=== PATIENT | female | born 1935 | race Caucasian/White ===

== ENCOUNTER 2016-08-27 11:20 | Emergency (ER) | payer MEDICARE ==
[~2016-08-27] VITALS: Ht 157.5 cm; Wt 63.0 kg
[2016-08-27 11:51] VITALS: BP 172/71; PULSE 66; RESP 18; O2SAT 97; O2SAT 98
--- NOTE | 2016-08-27 12:34 | PD ---
HPI Chief Complaint: Medical Clearance Time Seen by Provider: 12:28 Travel History International Travel<30 days: No Contact w/Intl Traveler<30days: No Traveled to known affect area: No History of Present Illness HPI 80-year-old female that presents to the ED for evaluation of failure to thrive. Patient apparently lives out of state. Per son were most of the history is obtained patient has been neglecting it pain her bills and she has no running water or electricity. She apparently is not taking care of herself on her arms or legs signs of neglect with poor bleeding. Patient lives by herself. Son lives here in [place]. No medical history as she has not seen a doctor since it and 10. Son just find out that patient has also noted. Apartment that she has on [place] which is unusual for her. She has no known history of dementia but son himself is noted that she is mentally declining. She came here to visit and this is one everything got noted. No recent falls. Patient apparently was seen at urgent care for evaluation of this as she will not go anywhere else. She has no primary care doctor in the area. Urgent care doctor saw her and she saw that her O2 sats were low and per ambulance reportedly coming here. Breath sounds are one of her lungs so sent her here for evaluation which she agreed to. Per ambulance her O2 with them and their lung exam was normal. She again denies any symptoms. She does per family appear to be very short of breath with ambulating and she does have a strong history of smoking. She denies again any symptoms. PFSH Past Medical History ?: Not Social History Alcohol Use: Yes (on occasion) Tobacco Use: Yes (0.5 ppd) Substance Use: No Allergies-Medications (Allergen,Severity, Reaction): Coded Allergies: No Known Allergies (Unverified , 08/27/16) Reported Meds & Prescriptions Reported Meds & Active Scripts Active Proair Hfa 8.5 GM Inh (Albuterol Sulfate) 90 Mcg/Act Aer 2 Puff INH Q4-6H PRN 108 mcg/actuation Review of Systems Except as stated in HPI: all other systems reviewed are Neg Physical Exam Narrative GENERAL: SKIN: Warm and dry. HEAD: Atraumatic. Normocephalic. EYES: Pupils equal and round 4 mm reactive to light and accommodation. No scleral icterus. No injection or drainage. ENT: No nasal bleeding or discharge. Mucous membranes pink and moist. Tongue is midline. No uvula deviation. NECK: Trachea midline. No JVD. CARDIOVASCULAR: Regular rate and rhythm. No murmurs, S3, S4. RESPIRATORY: No accessory muscle use. Clear to auscultation. Breath sounds equal bilaterally. GASTROINTESTINAL: Abdomen soft, non-tender, nondistended. Hepatic and splenic margins not palpable. MUSCULOSKELETAL: Extremities without clubbing, cyanosis, or edema. No obvious deformities. Full range of motion of the upper and lower extremities bilaterally. 2+ pulses bilaterally. Patient does have unkempt nails well as feet. No lumbar, thoracic, cervical spine tenderness to palpation. NEUROLOGICAL: Awake and alert. No obvious cranial nerve deficits. Motor grossly within normal limits. Five out of 5 muscle strength in the arms and legs. Normal speech. PSYCHIATRIC: Appropriate mood and affect; insight and judgment normal. Data Data Last Documented VS Vital Signs Date Time Temp Pulse Resp B/P Pulse Ox O2 Delivery O2 Flow Rate FiO2 08/27/16 11:51 83 18 08/27/16 11:51 172/71 97 Nasal Cannula 2 Orders Electrocardiogram (08/27/16 11:40) Complete Blood Count With Diff (08/27/16 11:40) Comprehensive Metabolic Panel (08/27/16 11:40) Creatine Kinase (Cpk) (08/27/16 11:40) Ckmb (Isoenzyme) Profile (08/27/16 11:40) Troponin I (08/27/16 11:40) Urinalysis - C+S If Indicated (08/27/16 11:40) Magnesium (Mg) (08/27/16 11:40) Thyroid Stimulating Hormone (08/27/16 11:40) Chest, Single Ap (08/27/16 11:40) Ct Brain W/O Iv Contrast(Rout) (08/27/16 11:40) Iv Access Insert/Monitor (08/27/16 11:40) Ecg Monitoring (08/27/16 11:40) Oximetry (08/27/16 11:40) Urine Culture (08/27/16 12:18) Labs Laboratory Tests Test 08/27/16 08/27/16 12:00 12:18 White Blood Count 8.0 TH/MM3 Red Blood Count 5.45 MIL/MM3 Hemoglobin 16.2 GM/DL Hematocrit 49.0 % Mean Corpuscular Volume 89.9 FL Mean Corpuscular Hemoglobin 29.7 PG Mean Corpuscular Hemoglobin 33.0 % Concent Red Cell Distribution Width 13.7 % Platelet Count 211 TH/MM3 Mean Platelet Volume 8.2 FL Neutrophils (%) (Auto) 73.5 % Lymphocytes (%) (Auto) 18.9 % Monocytes (%) (Auto) 6.1 % Eosinophils (%) (Auto) 0.7 % Basophils (%) (Auto) 0.8 % Neutrophils # (Auto) 5.9 TH/MM3 Lymphocytes # (Auto) 1.5 TH/MM3 Monocytes # (Auto) 0.5 TH/MM3 Eosinophils # (Auto) 0.1 TH/MM3 Basophils # (Auto) 0.1 TH/MM3 CBC Comment DIFF FINAL Differential Comment Sodium Level 141 MEQ/L Potassium Level 3.8 MEQ/L Chloride Level 104 MEQ/L Carbon Dioxide Level 31.3 MEQ/L Anion Gap 6 MEQ/L Blood Urea Nitrogen 11 MG/DL Creatinine 0.65 MG/DL Estimat Glomerular Filtration 87 ML/MIN Rate Random Glucose 89 MG/DL Calcium Level 9.3 MG/DL Magnesium Level 1.9 MG/DL Total Bilirubin 0.5 MG/DL Aspartate Amino Transf 22 U/L (AST/SGOT) Alanine Aminotransferase 19 U/L (ALT/SGPT) Alkaline Phosphatase 87 U/L Total Creatine Kinase 66 U/L Troponin I LESS THAN 0.02 NG/ML Total Protein 7.6 GM/DL Albumin 3.6 GM/DL Thyroid Stimulating Hormone 1.170 uIU/ML 3rd Gen Urine Color YELLOW Urine Turbidity CLEAR Urine pH 6.0 Urine Specific [place] 1.007 Urine Protein NEG mg/dL Urine Glucose (UA) NEG mg/dL Urine Ketones NEG mg/dL Urine Occult Blood NEG Urine Nitrite NEG Urine Bilirubin NEG Urine Urobilinogen LESS THAN 2.0 MG/DL Urine Leukocyte Esterase LARGE Urine RBC LESS THAN 1 /hpf Urine WBC 23 /hpf Urine Squamous Epithelial 1 /hpf Cells Urine Bacteria OCC /hpf Microscopic Urinalysis Comment CULTURE INDICATED MDM Medical Decision Making Medical Screen Exam Complete: Yes Emergency Medical Condition: Yes Medical Record Reviewed: Yes Interpretation(s) CBC & BMP Diagram 08/27/16 12:00 LFTs WNL UA shows possible UTI Last Impressions Head CT 08/27/16 1140 Signed Impressions: Service Date/Time: Saturday, August 27, 2016 12:49 - CONCLUSION: Unremarkable noncontrast CT. Leroy Marino MD Chest X-Ray 08/27/16 1140 Signed Impressions: Service Date/Time: Saturday, August 27, 2016 11:38 - CONCLUSION: No acute cardiopulmonary abnormality is identified. Elliot Rader MD troponin and CKMB negative Differential Diagnosis Failure to thrive versus dementia versus COPD versus CHF versus stroke versus electrolyte abnormality versus hypertension Narrative Course 80-year-old female that presents to the ED for evaluation of what appears to be dementia. Patient was properly examined and was found to have signs and symptoms which appear to be consistent with worsening dementia. Patient is not able to take care of herself. She has classic signs of dementia including her getting to pay bills. Not able to remember things. She has no medical history she does not see doctors per son. Son brought her here for evaluation for possible medical clearance to evaluate for possible home health as well as to evaluate for any other medical issues. Labs and imaging ordered. Labs and imaging showed possible UTI although was unremarkable. This was discussed with the family who agrees with plan. Case mentioned was contacted and they gave her information about what they could do. She is in agreement with taking her home as he does not want her to be placed. He feels comfortable taking her home with her. He feels reassured. At this time I believe the patient likely has COPD and will be given a prescription for albuterol. Her vitals and physical exam are reassuring here. Patient also was given a prescription for Bactrim to cover for possible UTI. From history and physical this again appears to be dementia and I spoke with the son in length that she needs to have a primary care doctor in the area. Patient is agrees with this plan. Patient was given information for her PCP is in the area. See ED worsening symptoms. Diagnosis Primary Impression: Dementia Qualified Code: G30.9 - Alzheimer's dementia without behavioral disturbance, unspecified timing of dementia onset Additional Impression: UTI (urinary tract infection) Qualified Code: N30.00 - Acute cystitis without hematuria Patient Instructions: General Instructions Additional Instructions: Take medications as prescribed. Follow-up with PCP. See ED worsening symptoms. Med/Other Pt SpecificInfo: Prescription(s) given Scripts Albuterol 8.5 GM Inh (Proair Hfa 8.5 GM Inh)90 Mcg/Act Aer2 Puff INH Q4-6H PRN ( SHORTNESS OF BREATH) #1 INHALER 108 mcg/actuation Prov:Frank Fernandez MD 08/27/16 Disposition: 01 DISCHARGE HOME Condition: Stable John Germain August 27, 2016 12:34
[2016-08-27 12:39] LABS: AUTOMATED NEUTROPHIL # 5.9 TH/MM3 (1.8-7.7); BASOPHIL # 0.1 TH/MM3 (0-0.2); BASOPHIL % 0.8 % (0.0-2.0); EOSINOPHIL # 0.1 TH/MM3 (0-0.4); EOSINOPHIL % 0.7 % (0.0-4.0); HEMO FLAGS DIFF FINAL; LYMPH % 18.9 % (9.0-44.0); LYMPHOCYTE # 1.5 TH/MM3 (1.0-4.8); MEAN CELL VOLUME 89.9 FL (80.0-100.0); MEAN CORPUSCULAR HEMOGLOBIN 29.7 PG (27.0-34.0); MONO % 6.1 % (0.0-8.0); NEUT % 73.5 % (16.0-70.0); PLATELET COUNT 211 TH/MM3 (150-450); RED BLOOD COUNT 5.45 MIL/MM3 (4.00-5.30); RED CELL DISTRIBUTION WIDTH 13.7 % (11.6-17.2)
[2016-08-27 12:43] LABS: BACTERIA, URINE OCC /hpf; BLOOD, URINE NEG (NEG); COMMENT (UR) CULTURE INDICATED; CULTURE IF INDICATED CULTURE INDICATED; GLUCOSE,URINE NEG (NEG); KETONE, URINE NEG (NEG); NITRITE,URINE NEG (NEG); SQUAMOUS EPITHELIAL CELL URINE 1 /hpf (0-5); URINE COLOR YELLOW (YELLW/STRAW)
[2016-08-27 12:46] LABS: ALT (GPT) 19 U/L (10-53); ANION GAP 6 MEQ/L (5-15); AST (GOT) 22 U/L (15-37); BICARBONATE 31.3 MEQ/L (21.0-32.0); BLOOD UREA NITROGEN 11 MG/DL (7-18); CHLORIDE 104 MEQ/L (98-107); GLOMERULAR FILTRATION RATE 87 ML/MIN (>89); MAGNESIUM 1.9 MG/DL (1.5-2.5); POTASSIUM 3.8 MEQ/L (3.5-5.1); SODIUM (NA) 141 MEQ/L (136-145)
[2016-08-27 12:56] LABS: ALKALINE PHOSPHATASE 87 U/L (45-117); TOTAL BILIRUBIN ADULT 0.5 MG/DL (0.2-1.0)
[2016-08-27 12:57] LABS: CREATINE KINASE 66 U/L (26-192)
--- NOTE | 2016-08-27 13:07 | RADRPT ---
EXAM DATE/TIME: 08/27/2016 12:49 [facility] COMPARISON: No previous studies available for comparison. INDICATIONS : Altered mental status/ trauma. RADIATION DOSE: 38.63 CTDIvol (mGy) MEDICAL HISTORY : None SURGICAL HISTORY : None. ENCOUNTER: Initial ACUITY: 1 day PAIN SCALE: 0/10 LOCATION: TECHNIQUE: Multiple contiguous axial images were obtained of the head. Using automated exposure control and adj ustment of the mA and/or kV according to patient size, radiation dose was kept as low as reasonably a chievable to obtain optimal diagnostic quality images. FINDINGS: CEREBRUM: The ventricles are normal for age. No evidence of midline shift, mass lesion, hemorrhage or acute in farction. No extra-axial fluid collections are seen. POSTERIOR FOSSA: The cerebellum and brainstem are intact. The 4th ventricle is midline. The cerebellopontine angle i s unremarkable. EXTRACRANIAL: The visualized portion of the orbits is intact. SKULL: The calvaria is intact. No evidence of skull fracture. CONCLUSION: Unremarkable noncontrast CT. Leroy Marino MD on August 27, 2016 at 13:04 Board Certified Radiologist. This report was verified electronically.
--- NOTE | 2016-08-27 13:19 | RADRPT ---
EXAM DATE/TIME: 08/27/2016 11:38 [facility] COMPARISON: No previous studies available for comparison. INDICATIONS : Short of breath. MEDICAL HISTORY : None. SURGICAL HISTORY : None. ENCOUNTER: Initial ACUITY: 1 day PAIN SCORE: 0/10 LOCATION: Bilateral chest FINDINGS: Portable AP views of the chest demonstrate a normal-sized cardiac silhouette. Lungs are hyperinflated but no effusion, consolidation, or pneumothorax is identified. The bones and soft tissues demonstrat e no acute finding. CONCLUSION: No acute cardiopulmonary abnormality is identified. Elliot Rader MD on August 27, 2016 at 13:09 Board Certified Radiologist. This report was verified electronically.
[2016-08-27] MEDS ORDERED: ALBUAER3 INH (13:35)
[2016-08-27] MEDS ORDERED: BACT800T5 PO (13:44)
--- NOTE | 2016-08-28 14:50 | EKG ---
Date Performed: 08/27/2016 Time Performed: 13:05:40 PTAGE: 80 years EKG: Sinus rhythm NORMAL ECG NO PREVIOUS TRACING DOCTOR: Franck Cook Interpretating Date/Time 08/28/2016 14:48:37
== END 2016-08-27 14:15 | disposition home or self-care (01) ==
LOC: NEPE 11:20
DX: G30.9 Alzheimer's disease, unspecified (principal); F02.80 Dementia in other diseases classified elsewhere, unspecified severity, without behavioral disturbance, psychotic disturbance, mood disturbance, and anxiety; N30.00 Acute cystitis without hematuria; R06.02 Shortness of breath; F17.200 Nicotine dependence, unspecified, uncomplicated; Z79.899 Other long term (current) drug therapy
CPT/HCPCS: 70450; 71010; 80053; 81001; 82550; 83735; 84443; 84484; 85025; 87086; 93005; 99285

== ENCOUNTER 2016-09-05 15:50 | Inpatient (IN) | payer MEDICARE, OTHER ==
[~2016-09-05] VITALS: Ht 154.9 cm; Wt 88.6 kg
[~2016-09-05 15:50] MED LIST: ALBUAER3 INH; BACT800T5 PO
[2016-09-05 16:45] VITALS: BP 142/79; PULSE 90; RESP 16; TEMP 99; O2SAT 94
[2016-09-05 18:03] LABS: AUTOMATED NEUTROPHIL # 8.2 TH/MM3 (1.8-7.7); BASOPHIL % 0.5 % (0.0-2.0); EOSINOPHIL % 0.3 % (0.0-4.0); HEMATOCRIT 52.4 % (35.0-46.0); HEMO FLAGS DIFF FINAL; LYMPH % 14.9 % (9.0-44.0); LYMPHOCYTE # 1.6 TH/MM3 (1.0-4.8); MEAN CELL VOLUME 90.2 FL (80.0-100.0); MEAN CORPUSCULAR HEMOGLOBIN 29.5 PG (27.0-34.0); MEAN CORPUSCULAR HGB CONC 32.8 % (32.0-36.0); MONO % 6.5 % (0.0-8.0); NEUT % 77.8 % (16.0-70.0); PLATELET COUNT 264 TH/MM3 (150-450); RED BLOOD COUNT 5.82 MIL/MM3 (4.00-5.30); RED CELL DISTRIBUTION WIDTH 13.5 % (11.6-17.2); WHITE BLOOD COUNT 10.5 TH/MM3 (4.0-11.0)
[2016-09-05 18:17] LABS: ALT (GPT) 26 U/L (10-53)
[2016-09-05 18:19] LABS: ALKALINE PHOSPHATASE 105 U/L (45-117); TOTAL BILIRUBIN ADULT 0.4 MG/DL (0.2-1.0)
[2016-09-05 18:32] LABS: ANION GAP 7 MEQ/L (5-15); AST (GOT) 28 U/L (15-37); BICARBONATE 26.9 MEQ/L (21.0-32.0); BLOOD UREA NITROGEN 29 MG/DL (7-18); CHLORIDE 101 MEQ/L (98-107); GLOMERULAR FILTRATION RATE 47 ML/MIN (>89); POTASSIUM 4.5 MEQ/L (3.5-5.1); SODIUM (NA) 135 MEQ/L (136-145)
--- NOTE | 2016-09-05 20:46 | PD ---
HPI Chief Complaint: Psychiatric Symptoms Time Seen by Provider: 20:39 Travel History International Travel<30 days: No Contact w/Intl Traveler<30days: No Traveled to known affect area: No History of Present Illness HPI 80yo F with no PMH brought in as [email or web address] because she cannot care for herself. As per [email or web address] form, she attempt to fly to [place] and had no ID or money on her. Pt may have dementia/alzhiemer per son per paper work. Pt denies any complaints. Denies any fever, chest pain, sob, n/v, abdominal pain, focal weakness or numbness. Denies any drug or alcohol use. PFSH Past Medical History ?: Not Social History Alcohol Use: No Tobacco Use: Yes Substance Use: No Allergies-Medications (Allergen,Severity, Reaction): Coded Allergies: No Known Allergies (Unverified , 08/27/16) Reported Meds & Prescriptions Reported Meds & Active Scripts Active Bactrim DS (Sulfamethoxazole-Trimethoprim) 800-160 Mg Tab 1 Tab PO BID 7 Days Proair Hfa 8.5 GM Inh (Albuterol Sulfate) 90 Mcg/Act Aer 2 Puff INH Q4-6H PRN 108 mcg/actuation Review of Systems Except as stated in HPI: all other systems reviewed are Neg Physical Exam Narrative GENERAL: 80yo F not in distress. SKIN: Focused skin assessment warm/dry. HEAD: Atraumatic. Normocephalic. EYES: Pupils equal and round. EOMI. No scleral icterus. No injection or drainage. ENT: No nasal bleeding or discharge. Mucous membranes pink and moist. NECK: Trachea midline. No JVD. CARDIOVASCULAR: Regular rate and rhythm. No murmur appreciated. RESPIRATORY: No accessory muscle use. Clear to auscultation. Breath sounds equal bilaterally. GASTROINTESTINAL: Abdomen soft, non-tender, nondistended. MUSCULOSKELETAL: No obvious deformities. No clubbing. No cyanosis. No edema. NEUROLOGICAL: Awake and alert. AAO2x. No obvious cranial nerve deficits. Motor grossly within normal limits. Normal speech. Data Data Last Documented VS Vital Signs Date Time Temp Pulse Resp B/P Pulse Ox O2 Delivery O2 Flow Rate FiO2 09/05/16 21:52 80 16 146/78 96 Room Air 09/05/16 16:45 99.0 Orders Complete Blood Count With Diff (09/05/16 17:45) Comprehensive Metabolic Panel (09/05/16 17:45) Urinalysis - C+S If Indicated (09/05/16 17:45) Psych Screen (09/05/16 17:45) Drug Screen, Random Urine (09/05/16 17:45) Alcohol (Ethanol) (09/05/16 17:45) Cath For Specimen (09/05/16 17:45) Diet Heart Healthy (09/06/16 Breakfast) Labs Laboratory Tests Test 09/05/16 09/05/16 17:40 22:10 White Blood Count 10.5 TH/MM3 Red Blood Count 5.82 MIL/MM3 Hemoglobin 17.2 GM/DL Hematocrit 52.4 % Mean Corpuscular Volume 90.2 FL Mean Corpuscular Hemoglobin 29.5 PG Mean Corpuscular Hemoglobin 32.8 % Concent Red Cell Distribution Width 13.5 % Platelet Count 264 TH/MM3 Mean Platelet Volume 8.3 FL Neutrophils (%) (Auto) 77.8 % Lymphocytes (%) (Auto) 14.9 % Monocytes (%) (Auto) 6.5 % Eosinophils (%) (Auto) 0.3 % Basophils (%) (Auto) 0.5 % Neutrophils # (Auto) 8.2 TH/MM3 Lymphocytes # (Auto) 1.6 TH/MM3 Monocytes # (Auto) 0.7 TH/MM3 Eosinophils # (Auto) 0.0 TH/MM3 Basophils # (Auto) 0.0 TH/MM3 CBC Comment DIFF FINAL Differential Comment Sodium Level 135 MEQ/L Potassium Level 4.5 MEQ/L Chloride Level 101 MEQ/L Carbon Dioxide Level 26.9 MEQ/L Anion Gap 7 MEQ/L Blood Urea Nitrogen 29 MG/DL Creatinine 1.12 MG/DL Estimat Glomerular Filtration 47 ML/MIN Rate Random Glucose 106 MG/DL Calcium Level 9.5 MG/DL Total Bilirubin 0.4 MG/DL Aspartate Amino Transf 28 U/L (AST/SGOT) Alanine Aminotransferase 26 U/L (ALT/SGPT) Alkaline Phosphatase 105 U/L Total Protein 8.0 GM/DL Albumin 3.8 GM/DL Ethyl Alcohol Level LESS THAN 3 MG/DL Urine Color YELLOW Urine Turbidity HAZY Urine pH 5.5 Urine Specific [place] 1.028 Urine Protein 30 mg/dL Urine Glucose (UA) NEG mg/dL Urine Ketones TRACE mg/dL Urine Occult Blood NEG Urine Nitrite NEG Urine Bilirubin NEG Urine Urobilinogen 2.0 MG/DL Urine Leukocyte Esterase SMALL Urine RBC LESS THAN 1 /hpf Urine WBC 4 /hpf Urine Hyaline Casts 1 /lpf Urine Mucus FEW /lpf Microscopic Urinalysis Comment CULT NOT INDICATED MDM Medical Decision Making Medical Screen Exam Complete: Yes Emergency Medical Condition: Yes Differential Diagnosis Dementia vs. delirium Narrative Course 80yo F brought in here under [place] Act because son states she cant take care of herself. She is no complaints. VS stable. Labs reviewed, elevated H/H. No leukocytosis. BUN mildly elevated. Pt can hydrate orally. Pt is hungry and wants to eat. Will provide pt with food and drink. Alcohol negative. UA and urine drug screen pending. Pt is medically clear for psych evaluation. Diagnosis Primary Impression: Dementia Qualified Code: F03.90 - Dementia without behavioral disturbance, unspecified dementia type Melina Padilla DO September 05, 2016 20:46
[2016-09-05 21:52] VITALS: BP 146/78; PULSE 80; RESP 16; O2SAT 96
[2016-09-05 22:24] LABS: BLOOD, URINE NEG (NEG); GLUCOSE,URINE NEG (NEG); HYALINE CAST, URINE 1 /lpf (RARE); KETONE, URINE TRACE mg/dL (NEG); MUCUS URINE FEW /lpf (OCC); NITRITE,URINE NEG (NEG); PH, URINE 5.5 (5.0-8.5); URINE COLOR YELLOW (YELLW/STRAW)
[2016-09-05 22:25] LABS: COMMENT (UR) CULT NOT INDICATED; CULTURE IF INDICATED CULT NOT INDICATED
[2016-09-06 01:41] LABS: AMPHETAMINE, URINE NEG (NEG); BARBITURATES, URINE NEG (NEG); COCAINE, URINE NEG (NEG)
[2016-09-06 05:17] VITALS: BP 156/70; PULSE 69; RESP 14; O2SAT 69
[2016-09-06 07:36] VITALS: BP 145/65; PULSE 75; RESP 14; TEMP 98.7; O2SAT 98
[2016-09-06 15:15] VITALS: BP 141/75; PULSE 78; RESP 18; O2SAT 96
[2016-09-06 19:18] VITALS: BP 142/93; PULSE 86; RESP 15; O2SAT 94
[2016-09-06] MEDS ORDERED: hydrOXYzine HCL 50 MG TAB PO PRN (23:30)
[2016-09-06] MEDS ORDERED: BENZTROPINE MESYLATE 2 MG/2 ML VIAL IM PRN (23:30)
[2016-09-06] MEDS ORDERED: LORazepam 0.5 MG TAB age > 65 yrs PO PRN (23:30)
[2016-09-06] MEDS ORDERED: BENZTROPINE MESYLATE 1 MG TAB PO PRN (23:30)
[2016-09-06] MEDS ORDERED: diphenhydrAMINE HCL 50 MG/ML VIAL - HS PRN IM (23:30)
[2016-09-06] MEDS ORDERED: LORazepam 2 MG/ML VIAL - age > 65 yrs IM PRN (23:30)
[2016-09-06] MEDS ORDERED: ALUMINUM/MAGNESIUM/SIMETH 30 ML CUP PO PRN (23:30)
[2016-09-06] MEDS ORDERED: diphenhydrAMINE HCL 50 MG CAP - HS PRN PO (23:30)
[2016-09-06] MEDS ORDERED: diphenhydrAMINE HCL 50 MG/ML VIAL IM PRN (23:30)
[2016-09-06] MEDS ORDERED: traZODone HCL 50 MG TAB PO PRN (23:30)
[2016-09-06] MEDS ORDERED: MAGNESIUM HYDROXIDE SUSP 30 ML CUP PO PRN (23:30)
[2016-09-06] MEDS ORDERED: ACETAMINOPHEN 325 MG TAB PO PRN (23:30)
[2016-09-06] MEDS ORDERED: diphenhydrAMINE HCL 50 MG CAP PO PRN (23:30)
[2016-09-07 01:39] VITALS: BP 179/81; PULSE 81; RESP 16; TEMP 97.9; O2SAT 90
[2016-09-07 05:38] VITALS: BP 153/68; PULSE 74; RESP 16; TEMP 98.3; O2SAT 92
[2016-09-07 10:52] LABS: BICARBONATE 23.9 MEQ/L (21.0-32.0); HDL CHOLESTEROL 48.9 MG/DL (40.0-60.0)
[2016-09-07 10:53] LABS: POTASSIUM 6.3 MEQ/L (3.5-5.1)
[2016-09-07] MEDS ORDERED: ACETAMINOPHEN 325 MG TAB PO PRN (11:45)
[2016-09-07] MEDS ORDERED: MAGNESIUM HYDROXIDE SUSP 30 ML CUP PO PRN (11:45)
[2016-09-07] MEDS ORDERED: ALUMINUM/MAGNESIUM/SIMETH 30 ML CUP PO PRN (11:45)
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
[2016-09-07] MEDS ORDERED: BACT800T5 PO (12:04)
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
== END 2016-09-07 13:10 | disposition home or self-care (01) | DRG 57 ==
LOC: NEPD 15:50 → NEDA 09-06 23:12 → H260 09-07 01:04
PROVIDERS: ADMIT Psychiatry & Neurology Psychiatry; ATTEND Psychiatry & Neurology Psychiatry
DX: G30.9 Alzheimer's disease, unspecified (principal); F02.81 Dementia in other diseases classified elsewhere, unspecified severity, with behavioral disturbance; N39.0 Urinary tract infection, site not specified; F17.210 Nicotine dependence, cigarettes, uncomplicated
CPT/HCPCS: 80048; 80053; 80061; 80307; 81001; 85025; 99285

== ENCOUNTER 2017-10-23 13:40 | Inpatient (IN) ==
[2017-10-23] MEDS ORDERED: Amiodarone Inj 150 MG in Dextrose 5% in Water Inj 97 ML IV.SIG ONE ×2 (13:57)
--- NOTE | 2017-10-23 14:10 | ED ---
HPI General Chief Complaint: Respiratory Symptoms Stated Complaint: medical Time Seen by Provider: 10/23/17 13:57 Source: patient Mode of arrival: EMS Limitations: no limitations History of Present Illness MD complaint: rapid heart beat, "heart racing" and irregular heart beat Onset (ago): minute(s) (45) Duration: constant Severity: severe Context: occurred during rest Arrhythmia history: other (Per patient she has no history of atrial fibrillation or any other irregular or arrhythmias) Associated symptoms: shortness of breath Related Data Home Medications Medication Instructions Recorded Confirmed amoxicillin-pot clavulanate 1 tab PO BID 10/23/17 10/23/17 [Augmentin] cyanocobalamin (vitamin B-12) 2,000 mcg PO DAILY 10/23/17 10/23/17 [Vitamin B-12] prednisone 5 mg PO DAILY 10/23/17 10/23/17 tiotropium bromide [Spiriva with 1 cap INHALATION DAILY 10/23/17 10/23/17 HandiHaler] Allergies Allergy/AdvReac Type Severity Reaction Status Date / Time No Known Allergies Allergy Unverified 10/23/17 13:55 Review of Systems Except as stated in HPI: all other systems reviewed are negative PMFSH History History Provided By: Patient Medical History Medical History COPD (chronic obstructive pulmonary disease) (Acute) Dementia (Acute) History of hysterectomy (Acute) Social History Social History Substance History: No History of Abuse Second Hand Smoke Exposure: Yes Smoking Status: Current every day smoker Tobacco Type: Cigarettes How Often Do You Have a Drink Containing Alcohol: Never Recent Travel in [facility] within the Last 8 Weeks: No Recent Out of Country Travel within the Last 8 Weeks: No Exam Narrative Exam Narrative: GENERAL: Well-nourished, well-developed patient in no apparent distress. SKIN: Warm and dry. HEAD: Atraumatic. Normocephalic. EYES: Pupils equal and round. No scleral icterus. No injection or drainage. ENT: No nasal bleeding or discharge. Mucous membranes pink and moist. NECK: Trachea midline. No JVD. CARDIOVASCULAR: Tachycardic rate irregularly irregular rhythm. no rubs or gallops RESPIRATORY: No accessory muscle use. Clear to auscultation. Breath sounds equal bilaterally. GASTROINTESTINAL: Abdomen soft, non-tender, nondistended. No rebound or guarding MUSCULOSKELETAL: Extremities without clubbing, cyanosis, or edema. No obvious deformities. NEUROLOGICAL: Awake and alert. No obvious cranial nerve deficits. Motor grossly within normal limits. Five out of 5 muscle strength in the arms and legs. Normal speech. PSYCHIATRIC: Appropriate mood and affect; insight and judgment normal. Course Initial Documented Vital Signs Temperature 98.0 F 10/23/17 13:56 Pulse Rate 188 H 10/23/17 13:56 Respiratory Rate 28 H 10/23/17 13:56 Blood Pressure 88/63 L 10/23/17 13:56 Pulse Oximetry 92 L 10/23/17 13:56 Last Documented Vital Signs Temperature 97.8 F 10/23/17 15:10 Pulse Rate 89 10/23/17 15:10 Respiratory Rate 22 10/23/17 15:10 Blood Pressure 117/77 10/23/17 15:10 Pulse Oximetry 99 10/23/17 15:10 Critical Care Time Critical Care Time: Yes Total Critical Care Time: 60 Attestation: Aggregate critical care time was 60 minutes. Time to perform other separately billable procedures was not included in the critical care time. My time did not include minutes spent treating any other patients simultaneously or on activities that did not directly contribute to the patient's treatment. The services I provided to this patient were to treat and/or prevent clinically significant deterioration that could result in: [Hypoperfusion such as stroke [place], permanent disability, ] I provided critical care services requiring my management, as noted below: Chart data review, documentation time, medication orders and management, vital sign assessments/reviewing monitor data, ordering and reviewing lab tests, ordering and interpreting/reviewing x-rays and diagnostic studies, care of the patient and discussion of the patient with the admitting physicians. Medical Decision Making Medical Records Medical records reviewed: Yes I reviewed the patient's medical records. Attempted to review all records however the patient is from Lab Data Lab results reviewed: Yes I reviewed the patient's lab results. Result diagrams: 10/23/17 14:10 10/23/17 14:10 Lab Results 10/23/17 10/23/17 10/23/17 Range/Units 14:10 14:10 14:10 WBC 21.6 H (4.0-11.0) th/mm3 RBC 5.05 (4.00-5.30) mil/mm3 Hgb 14.9 (11.6-15.3) gm/dL Hct 45.2 (35.0-46.0) % MCV 89.6 (80.0-100.0) fL MCH 29.5 (27.0-34.0) pg MCHC 33.0 (32.0-36.0) % RDW 13.3 (11.6-17.2) % Plt Count 468 H (150-450) th/mm3 MPV 8.3 (7.0-11.0) fL Neut % (Auto) 90.3 H (16.0-70.0) % Lymph % (Auto) 4.8 L (9.0-44.0) % [place] % (Auto) 4.8 (0.0-8.0) % Eos % (Auto) 0.0 (0.0-4.0) % Baso % (Auto) 0.1 (0.0-2.0) % Neut # (Auto) 19.5 H (1.8-7.7) th/mm3 Lymph # (Auto) 1.0 (1.0-4.8) th/mm3 [place] # (Auto) 1.0 H (0.0-0.9) th/mm3 Eos # (Auto) 0.0 (0.0-0.4) th/mm3 Baso # (Auto) 0.0 (0.0-0.2) th/mm3 WBC Differential . Differential Comment Auto diff final PT 11.2 (9.8-11.6) sec INR 1.1 Ratio APTT 26.5 (24.3-30.1) sec Sodium 137 (136-145) meq/L Potassium 4.2 (3.5-5.1) meq/L Chloride 96 L (98-107) meq/L Carbon Dioxide 29.1 (21.0-32.0) meq/L Anion Gap 12 (5-15) meq/L BUN 13 (7-18) mg/dL Creatinine 0.82 (0.50-1.00) mg/dL Estimated GFR 67 L (>89) mL/min Random Glucose 101 (74-106) mg/dL Calcium 7.9 L (8.5-10.1) mg/dL Prot Corrected Calcium Total Bilirubin 1.0 (0.2-1.0) mg/dL AST 31 (15-37) U/L ALT 31 (10-53) U/L Alkaline Phosphatase 213 H (45-117) U/L Total Creatine Kinase 46 (26-192) U/L Troponin I Less than 0.02 L (0.02-0.05) ng/mL B-Natriuretic Peptide (0-100) pg/mL Total Protein 7.5 (6.4-8.2) g/dL Albumin 2.3 L (3.4-5.0) g/dL Lipase 98 (73-393) U/L Serum Alcohol Less than 3 (0-5) mg/dL 10/23/17 10/23/17 Range/Units 14:10 14:10 WBC (4.0-11.0) th/mm3 RBC (4.00-5.30) mil/mm3 Hgb (11.6-15.3) gm/dL Hct (35.0-46.0) % MCV (80.0-100.0) fL MCH (27.0-34.0) pg MCHC (32.0-36.0) % RDW (11.6-17.2) % Plt Count (150-450) th/mm3 MPV (7.0-11.0) fL Neut % (Auto) (16.0-70.0) % Lymph % (Auto) (9.0-44.0) % [place] % (Auto) (0.0-8.0) % Eos % (Auto) (0.0-4.0) % Baso % (Auto) (0.0-2.0) % Neut # (Auto) (1.8-7.7) th/mm3 Lymph # (Auto) (1.0-4.8) th/mm3 [place] # (Auto) (0.0-0.9) th/mm3 Eos # (Auto) (0.0-0.4) th/mm3 Baso # (Auto) (0.0-0.2) th/mm3 WBC Differential Differential Comment PT (9.8-11.6) sec INR Ratio APTT (24.3-30.1) sec Sodium Cancelled (136-145) meq/L Potassium Cancelled (3.5-5.1) meq/L Chloride Cancelled (98-107) meq/L Carbon Dioxide Cancelled (21.0-32.0) meq/L Anion Gap Cancelled (5-15) meq/L BUN Cancelled (7-18) mg/dL Creatinine Cancelled (0.50-1.00) mg/dL Estimated GFR Cancelled (>89) mL/min Random Glucose Cancelled (74-106) mg/dL Calcium Cancelled (8.5-10.1) mg/dL Prot Corrected Calcium Cancelled Total Bilirubin Cancelled (0.2-1.0) mg/dL AST Cancelled (15-37) U/L ALT Cancelled (10-53) U/L Alkaline Phosphatase Cancelled (45-117) U/L Total Creatine Kinase Cancelled (26-192) U/L Troponin I (0.02-0.05) ng/mL B-Natriuretic Peptide 214 H (0-100) pg/mL Total Protein Cancelled (6.4-8.2) g/dL Albumin Cancelled (3.4-5.0) g/dL Lipase (73-393) U/L Serum Alcohol (0-5) mg/dL Imaging Data Radiologist's impression: Chest X-Ray 10/23/17 13:57 CONCLUSION: New diffuse patchy infiltrate in the left lower lung with a small effusion suggestive of pneumonia. ECG Data EKG Prior to Arrival: No Attestation: I personally reviewed and interpreted this ECG as follows: Prior ECG tracings: not available for review Interpretation: A. fib with RVR nonspecific stt changes 180 bpm Discharge Plan Discharge Disposition Patient Disposition: 30 Still Patient Discharge Condition Condition: Stable Discharge Details Diagnosis: Pneumonia, Atrial fibrillation with rapid ventricular response Physicians Team ED Provider: Jemal Harris Primary Care Provider: UNKNOWN, Rxs /Orders / Referrals /Forms Prescriptions: No Action prednisone 5 mg Tablet 5 mg PO DAILY RF: 0 cyanocobalamin (vitamin B-12) [Vitamin B-12] 2,000 mcg Tablet Extended Release 2,000 mcg PO DAILY RF: 0 amoxicillin-pot clavulanate [Augmentin] 875-125 mg Tablet 1 tab PO BID RF: 0 tiotropium bromide [Spiriva with HandiHaler] 18 mcg Capsule, W/Inhalation Device 1 cap INHALATION DAILY RF: 0 Discharge Interventions Interventions: Vital Signs Last Done: 10/23/17 15:10 Status ED Status: With Doctor
[2017-10-23 14:46] LABS: Baso % (Auto) 0.1 % (0.0-2.0); Hematocrit 45.2 % (35.0-46.0); Hemoglobin 14.9 gm/dL (11.6-15.3); Lymph % (Auto) 4.8 % (9.0-44.0); Mean Corpuscular Hemoglobin 29.5 pg (27.0-34.0); Mean Corpuscular Volume 89.6 fL (80.0-100.0); Mean Platelet Volume 8.3 fL (7.0-11.0); Mono % (Auto) 4.8 % (0.0-8.0); Neut # (Auto) 19.5 th/mm3 (1.8-7.7); Neut % (Auto) 90.3 % (16.0-70.0); Platelet Count 468 th/mm3 (150-450); Red Blood Count 5.05 mil/mm3 (4.00-5.30); Red Cell Distribution Width 13.3 % (11.6-17.2); White Blood Count 21.6 th/mm3 (4.0-11.0)
--- NOTE | 2017-10-23 14:46 | XR ---
EXAM DATE: 10/23/2017 2:41 PM EDT AGE/SEX: 81 years / Female INDICATIONS: . Chest pain. CLINICAL DATA: This is the patient's initial encounter. Patient reports that signs and symptoms have been present for 1 day and indicates a pain score of 7/10. MEDICAL/SURGICAL HISTORY: Chronic obstructive pulmonary disease. None. COMPARISON: [facility] – [place], CHEST SINGLE AP, 08/27/2016. . FINDINGS: There is a new diffuse patchy infiltrate in the left lower lung with a small effusion suggestive of p neumonia. The right lung is grossly clear. There is stable chronic interstitial changes bilaterally. The heart size is stable. The bony structures are grossly intact. CONCLUSION: New diffuse patchy infiltrate in the left lower lung with a small effusion suggestive of pneumonia. Electronically signed by: Cecilio Alicia MD 10/23/2017 2:45 PM EDT
[2017-10-23 14:56] LABS: Activated Partial Thrombo Time 26.5 sec (24.3-30.1); INR 1.1 Ratio; Prothrombin Time 11.2 sec (9.8-11.6)
[2017-10-23 15:20] LABS: Alanine Aminotransferase 31 U/L (10-53); Albumin 2.3 g/dL (3.4-5.0); Anion Gap 12 meq/L (5-15); Aspartate Aminotransferase 31 U/L (15-37); Blood Urea Nitrogen 13 mg/dL (7-18); Calcium 7.9 mg/dL (8.5-10.1); Carbon Dioxide 29.1 meq/L (21.0-32.0); Chloride 96 meq/L (98-107); Glomerular Filtration Rate 67 mL/min (>89); Glucose,Random 101 mg/dL (74-106); Lipase 98 U/L (73-393); Potassium 4.2 meq/L (3.5-5.1); Sodium 137 meq/L (136-145)
[2017-10-23 15:25] LABS: Alkaline Phosphatase 213 U/L (45-117); Total Protein 7.5 g/dL (6.4-8.2)
[2017-10-23 15:35] LABS: Creatine Kinase 46 U/L (26-192)
[2017-10-23] MEDS ORDERED: Ketorolac Inj 30 MG/ML (IVP) Vial IV.PUSH ONE (16:05)
[2017-10-23] MEDS ORDERED: Acetaminophen 325 MG Tablet PO PRN (16:18)
--- NOTE | 2017-10-23 16:32 | P.HPIM ---
History of Present Illness Primary Care Physician: UNKNOWN Chief Complaint: shortness of breath History of Present Illness: patient is a 81 y/o female with history of dementia, COPD , [facility] resident, who was brought to ER today with worsening sob. 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 she says that she's had dry cough with no reported fever, chills, night sweats. she says that she had some pain to the left chest wall. on arrival to ER she was found to have a- fib with RVR for which she was placed on Amiodarone drip. there's no history of sick- contacts recently. Inpatient Certification: I certify that the inpatient services were ordered in accordance with Medicare regulations governing the order. This includes certification that hospital inpatient services are reasonable and necessary and in the case of services not specified as inpatient-only under 42 CFR 419.22(n), that they are appropriately provided as inpatient services in accordance to with the 2-midnight benchmark under 43 CFR 412.3(e) Estimated Total Length of Stay (Days): 2 Plans for Post Hospital Care: Other Review of Systems All other systems reviewed negative except as stated in HPI PMFSH - History History Provided By: Patient - Medical History Medical History: Medical History (Last Updated 10/23/17 @ 14:13 by Annabelle Hanson) COPD (chronic obstructive pulmonary disease) Dementia History of hysterectomy - Tobacco History Second Hand Smoke Exposure: Yes Tobacco Use In Past 30 Days: Yes Smoking Status: Current every day smoker Tobacco Type: Cigarettes - Alcohol History How Often Do You Have a Drink Containing Alcohol: Never - Substance Use History Substance History: No History of Abuse - Travel History Recent Travel in the [place] Within the Last 8 Weeks: No Recent Travel Out of the Country Within the Last 8 Weeks: No - Immunization History Tetanus Immunization: >5 Years Hx Influenza Vaccine This Season: Yes Medications and Allergies Active Medications: Active Medications Acetaminophen (Tylenol) 650 mg PO Q4H PRN PRN Reason: fever/pain Albuterol (Albuterol Neb (Prn)) 0.63 mg NEB Q6HR NEB PRN PRN Reason: SHORTNESS OF BREATH Amiodarone HCl 450 mg/ (Dextrose) 250 mls @ 33.33 mls/hr IV.CONT TITRATE PRN; Protocol PRN Reason: Per Protocol Last Admin: 10/23/17 14:19 Dose: 1 mg/min, 33.33 mls/hr Levofloxacin/Dextrose (Levaquin 750 Mg Premix Inj) 150 mls @ 100 mls/hr IV.SIG STAT STA Stop: 10/23/17 17:20 Last Admin: 10/23/17 16:10 Dose: 100 mls/hr Sodium Chloride (Ns Flush) 2 ml IV.FLUSH UNSCH PRN PRN Reason: FLUSH AFTER USING IV ACCESS Last Admin: 10/23/17 14:04 Dose: 2 ml Allergies Allergy/AdvReac Type Severity Reaction Status Date / Time No Known Allergies Allergy Unverified 10/23/17 13:55 Home Medications Medication Instructions Recorded Confirmed Type amoxicillin-pot clavulanate 1 tab PO BID 10/23/17 10/23/17 History [Augmentin] cyanocobalamin (vitamin B-12) 2,000 mcg PO DAILY 10/23/17 10/23/17 History [Vitamin B-12] prednisone 5 mg PO DAILY 10/23/17 10/23/17 History tiotropium bromide [Spiriva with 1 cap INHALATION DAILY 10/23/17 10/23/17 History HandiHaler] Exam Vital signs: Vital Signs 10/23/17 13:56 10/23/17 13:57 10/23/17 14:25 Temperature 98.0 F 97.9 F Pulse Rate 188 H 188 H 96 H Respiratory Rate 28 H 32 H Blood Pressure 88/63 L 125/59 L Pulse Oximetry 92 L 96 94 L 10/23/17 15:10 10/23/17 16:12 Temperature 97.8 F 98.0 F Pulse Rate 89 83 Respiratory Rate 22 24 Blood Pressure 117/77 120/61 Pulse Oximetry 99 98 Intake & Output 10/22/17 10/23/17 10/23/17 18:59 06:59 18:59 Intake Total 100 / 100 Balance 100 / 100 Weight 58.967 kg Intake: IV 100 / 100 Cordarone Inj 150 MG In D5W Inj 100 / 100 97 ML @ 600 mls/hr IV.SIG ONCE ONE Rx#:[id number] - Constitutional mild distress - Routine HEENT Exam Head: Present: normocephalic Eye: Present: PERRL - Routine Neck Exam Present: supple, full ROM - Routine Respiratory Exam Present: diminished air movement (in bases bilaterally.) - Routine Cardiovascular Exam Present: tachycardia, irregularly irregular - Routine Abdominal Exam Present: soft - Routine Extremities Exam Comments: no pedal edema. - Routine Neurological Exam Present: alert Results - Labs CBC & Chem 7: 10/23/17 14:10 10/23/17 14:10 Labs: Short CBC 10/23/17 Range/Units 14:10 WBC 21.6 H (4.0-11.0) th/mm3 Hgb 14.9 (11.6-15.3) gm/dL Hct 45.2 (35.0-46.0) % Plt Count 468 H (150-450) th/mm3 BMP 10/23/17 10/23/17 14:10 14:10 Sodium 137 Cancelled Potassium 4.2 Cancelled Chloride 96 L Cancelled Carbon Dioxide 29.1 Cancelled BUN 13 Cancelled Creatinine 0.82 Cancelled Calcium 7.9 L Cancelled Cardiac Enzymes 10/23/17 10/23/17 Range/Units 14:10 14:10 Total Creatine Kinase 46 Cancelled (26-192) U/L Troponin I Less than 0.02 L (0.02-0.05) ng/mL Liver Function 10/23/17 10/23/17 Range/Units 14:10 14:10 Total Bilirubin 1.0 Cancelled (0.2-1.0) mg/dL AST 31 Cancelled (15-37) U/L ALT 31 Cancelled (10-53) U/L Alkaline Phosphatase 213 H Cancelled (45-117) U/L Albumin 2.3 L Cancelled (3.4-5.0) g/dL - Imaging Impressions Chest X-Ray 10/23/17 13:57 CONCLUSION: New diffuse patchy infiltrate in the left lower lung with a small effusion suggestive of pneumonia. Caprini VTE Risk Assessment Caprini VTE Risk Assessment: Moderate/High Risk (score >= 2) Caprini Risk Assessment Model: Point Value = 1 Point Value = 2 Point Value = 3 Point Value = 5 Age 41-60 Minor surgery BMI > 25 kg/m2 Swollen legs Varicose veins or History of unexplained or recurrent spontaneous Oral contraceptives or hormone replacement Sepsis (< 1 month) Serious lung disease, including pneumonia (< 1 month) Abnormal pulmonary function Acute myocardial infarction Congestive heart failure (< 1 month) History of inflammatory bowel disease Medical patient at bed rest Age 61-74 Arthroscopic surgery Major open surgery (> 45 min) Laparoscopic surgery (> 45 min) Malignancy Confined to bed (> 72 hours) Immobilizing plaster cast Central venous access Age >= 75 History of VTE Family history of VTE Factor V Leiden Prothrombin [id number] Lupus anticoagulant Anticardiolipin antibodies Elevated serum homocysteine Heparin-induced thrombocytopenia Other congenital or acquired thrombophilia Stroke (< 1 month) Elective arthroplasty Hip, pelvis, or leg fracture Acute spinal cord injury (< 1 month) Prophylaxis Regimen: Total Risk Factor Score Risk Level Prophylaxis Regimen 0-1 Low Early ambulation 2 Moderate Order ONE of the following: *Sequential Compression Device (SCD) *Heparin 5000 units SQ BID 3-4 Higher Order ONE of the following medications: *Heparin 5000 units SQ TID *Enoxaparin/Lovenox 40 mg SQ daily (WT < 150 kg, CrCl > 30 mL/min) *Enoxaparin/Lovenox 30 mg SQ daily (WT < 150 kg, CrCl > 10-29 mL/min) *Enoxaparin/Lovenox 30 mg SQ BID (WT < 150 kg, CrCl > 30 mL/min) AND/OR *Sequential Compression Device (SCD) 5 or more Highest Order ONE of the following medications: *Heparin 5000 units SQ TID (Preferred with Epidurals) *Enoxaparin/Lovenox 40 mg SQ daily (WT < 150 kg, CrCl > 30 mL/min) *Enoxaparin/Lovenox 30 mg SQ daily (WT < 150 kg, CrCl > 10-29 mL/min) *Enoxaparin/Lovenox 30 mg SQ BID (WT < 150 kg, CrCl > 30 mL/min) AND *Sequential Compression Device (SCD) Assessment and Plan - Plan A/P - A-fib with RVR started on Amiodarone drip by ER- will check echo and consult cardiology. -sepsis due to pneumonia with history of COPD continue IV Levaquin-start on neb treatment- keep on oxygen to keep O2 sat >90% - follow the cultures. -DVT prophylaxis; subq Lovenox -DNR status. Discussed Condition With: ER physician and the patient. Discharge Planning: when clinically has improved and w/u completed.
--- NOTE | 2017-10-23 22:06 | MB ---
cc: Amilcar Mcduffie Vincent G DO DATE: 10/23/2017 REASON FOR CONSULTATION: Shortness of breath, atrial fibrillation with rapid ventricular response. HISTORY OF PRESENT ILLNESS: Amelia Watkins is a pleasant 81-year-old female who presented to [facility] Emergency Room due to shortness of breath. She lives in an assisted living facility in a walk-down unit due to her dementia. Her caregiver is at the bedside and is able to provide information as the patient is an overall poor historian. She does have a court-appointed guardian, per the caregiver. Apparently, Amelia has been getting more short of breath over the past few days. She has also had somewhat of a dry cough. No fevers, chills or night sweats noted. She has pain on the left chest wall, which was a little more when palpation of the chest wall. Upon arrival, she was found to be in atrial fibrillation with rapid ventricular response and started on an amiodarone drip. Since that time, her heart rates have been controlled. In seeing her, she says that she feels fine and has no complaints. PAST MEDICAL HISTORY: 1. COPD. 2. Dementia. 3. Tobacco abuse. PAST SURGICAL HISTORY: Hysterectomy. ALLERGIES: NO KNOWN DRUG ALLERGIES. MEDICATIONS: 1. Spiriva 18 mcg inhaled daily. 2. Prednisone 5 mg daily. 3. Vitamin B12 2000 mcg daily. FAMILY HISTORY: Unknown at this time. SOCIAL HISTORY: The patient smokes around a pack of cigarettes a day. Denies alcohol or drug abuse. REVIEW OF SYSTEMS: Fourteen systems were reviewed including osteopathic. Pertinent positives and negatives as above, otherwise negative. PHYSICAL EXAMINATION: VITAL SIGNS: Temperature 97.8, heart rate 89, blood pressure 108/65, respirations 20, pulse oximetry 99% on 3 liters. GENERAL: The patient appears well in no acute distress. Alert and awake and oriented x0. HEENT: Extraocular muscles intact. Mucous membranes moist. NECK: Supple. No JVD at 45 degrees. No carotid bruits heard bilaterally. Carotid upstroke is brisk in nature. HEART: Irregularly irregular. Positive first and second heart sounds with no noted murmurs, gallops or rubs. LUNGS: Decreased breath sounds bilaterally with minimal rhonchi noted on the left side. ABDOMEN: Soft, nontender, nondistended, no organomegaly noted. EXTREMITIES: Show no clubbing, cyanosis or edema. Femoral and distal pulses are intact bilaterally. NEUROLOGIC: No focal deficits. SKIN: Warm, dry and intact. OSTEOPATHIC: No kyphoscoliosis, lordosis or paraspinal tender points. LABORATORY DATA: Hemoglobin 14.9, hematocrit 45.2, platelets 468. Potassium 4.2, BUN 13, creatinine 0.82. Troponin less than 0.02. CARDIOLOGY STUDIES: Electrocardiogram (10/23/2017 and 1402): Atrial fibrillation with rapid ventricular response, nonspecific ST-T wave changes. IMPRESSION: 1. New onset atrial fibrillation with rapid ventricular response, CHADS-VASc score of 3 (age x2, gender). 2. Left lower lung pneumonia. 3. Tobacco abuse. 4. Chronic obstructive pulmonary disease. 5. Dementia. RECOMMENDATIONS: 1. Ms. Watkins presented with pneumonia and was found to have atrial fibrillation with rapid ventricular response. 2. Atrial fibrillation with rapid ventricular response is most likely due to increased sympathetic due to her left lower lobe pneumonia. 3. She has been started on an amiodarone drip, but overall I do not believe that she should be continued on this if possible and we will try to transition her to calcium channel yakov therapy orally. 4. We will check a 2-Dimensional echocardiogram to look at her overall left ventricular function, cardiac structure and possible valvulopathies. 5. She has a CHADS-VASc score of 3. Overall, this is difficult as she does have significant dementia and her gait as well as possibility of falls needs to be further evaluated before starting her on anticoagulation. 6. Further recommendations will be made based on the hospital course. 7. Spoke to her about tobacco cessation for greater than 3 minutes. Thank you for allowing me to see Amelia Watkins. If there are any questions, please do not hesitate to call. DO MARYJO Augustni/ , 09:42 PM , 10:05 PM TEETEE
[2017-10-23] MEDS ORDERED: Amiodarone Inj 450 MG in Sodium Chlor 0.9% Inj 241 ML IV.CONT PRN (23:14)
[2017-10-23] MEDS: dilTIAZem 30 MG Tablet PO SCH (23:32)
[2017-10-24 06:19] LABS: Baso % (Auto) 0.1 % (0.0-2.0); Eos # (Auto) 0.1 th/mm3 (0.0-0.4); Eos % (Auto) 0.4 % (0.0-4.0); Hematocrit 41.2 % (35.0-46.0); Hemoglobin 13.8 gm/dL (11.6-15.3); Lymph # (Auto) 1.2 th/mm3 (1.0-4.8); Lymph % (Auto) 9.3 % (9.0-44.0); Mean Corpuscular HGB Conc 33.4 % (32.0-36.0); Mean Corpuscular Hemoglobin 29.8 pg (27.0-34.0); Mean Corpuscular Volume 89.1 fL (80.0-100.0); Mean Platelet Volume 7.4 fL (7.0-11.0); Mono # (Auto) 1.1 th/mm3 (0.0-0.9); Mono % (Auto) 8.5 % (0.0-8.0); Neut % (Auto) 81.7 % (16.0-70.0); Platelet Count 358 th/mm3 (150-450); Red Blood Count 4.62 mil/mm3 (4.00-5.30); Red Cell Distribution Width 13.4 % (11.6-17.2); White Blood Count 13.5 th/mm3 (4.0-11.0)
[2017-10-24] MEDS: Tiotropium Bromide 18 MCG/ACT Inhaler INH SCH (09:20)
[2017-10-24] MEDS: dilTIAZem 30 MG Tablet PO SCH ×4 (09:21→21:00)
[2017-10-24] MEDS: predniSONE 5 MG Tablet PO SCH (09:21)
--- NOTE | 2017-10-24 09:21 | P.PNIM ---
Subjective Interval history: in no acute distress. looks and feels better today; sob has improved- but still has some occasional cough. no fever. no chest pain. Physical Exam Vital signs: Vital Signs 10/23/17 13:56 10/23/17 13:57 10/23/17 14:25 Temperature 98.0 F 97.9 F Pulse Rate 188 H 188 H 96 H Respiratory Rate 28 H 32 H Blood Pressure 88/63 L 125/59 L Pulse Oximetry 92 L 96 94 L 10/23/17 15:10 10/23/17 16:12 10/23/17 16:19 Temperature 97.8 F 98.0 F Pulse Rate 89 83 Respiratory Rate 22 24 Blood Pressure 117/77 120/61 Pulse Oximetry 99 98 99 10/23/17 16:20 10/23/17 16:43 10/23/17 17:20 Temperature 97.8 F 97.8 F Pulse Rate 89 92 H Respiratory Rate 20 22 28 H Blood Pressure 108/65 105/67 Pulse Oximetry 98 10/23/17 18:20 10/23/17 20:00 10/23/17 21:35 Temperature 97.9 F 97.7 F Pulse Rate 86 78 Respiratory Rate 26 H 22 Blood Pressure 110/68 102/53 L Pulse Oximetry 99 94 L 96 10/24/17 00:00 10/24/17 04:00 10/24/17 07:54 Temperature 98.1 F 98.4 F 97.7 F Pulse Rate 78 76 70 Respiratory Rate 20 20 18 Blood Pressure 123/50 L 111/49 L 117/51 L Pulse Oximetry 93 L 93 L 96 Intake & Output 10/23/17 10/24/17 10/24/17 18:59 06:59 18:59 Intake Total 100 / 100 510 / 510 Balance 100 / 100 510 / 510 Weight 58.967 kg 62 kg Intake: IV 100 / 100 270 / 270 Cordarone Inj 450 MG In D5W Inj 250 / 250 241 ML @ 1 MG/MIN 33.33 mls/hr IV.CONT TITRATE PRN Rx#: [id number] Cordarone Inj 450 MG In NS Inj 20 / 20 241 ML @ 1 MG/MIN 33.33 mls/hr IV.CONT TITRATE PRN Rx#: [id number] Cordarone Inj 150 MG In D5W Inj 100 / 100 97 ML @ 600 mls/hr IV.SIG ONCE ONE Rx#:[id number] Oral 240 / 240 Other: # Urine Diapers 2 Date of Last Bowel Movement 10/24/17 # Incontinent Bowel Movements 2 - Constitutional no acute distress - Routine Respiratory Exam Present: decreased breath sounds (in bases.) - Routine Cardiovascular Exam Present: RRR - Routine Abdominal Exam Present: soft - Routine Extremities Exam Comments: no pedal edema. - Routine Neurological Exam Present: alert Results - Labs CBC & Chem 7: 10/24/17 05:47 10/23/17 14:10 Laboratory Results - last 24 hr 10/23/17 10/23/17 10/23/17 14:10 14:10 14:10 WBC 21.6 H RBC 5.05 Hgb 14.9 Hct 45.2 MCV 89.6 MCH 29.5 MCHC 33.0 RDW 13.3 Plt Count 468 H MPV 8.3 Neut % (Auto) 90.3 H Lymph % (Auto) 4.8 L [place] % (Auto) 4.8 Eos % (Auto) 0.0 Baso % (Auto) 0.1 Neut # (Auto) 19.5 H Lymph # (Auto) 1.0 [place] # (Auto) 1.0 H Eos # (Auto) 0.0 Baso # (Auto) 0.0 WBC Differential . Differential Comment Auto diff final PT 11.2 INR 1.1 APTT 26.5 Sodium 137 Potassium 4.2 Chloride 96 L Carbon Dioxide 29.1 Anion Gap 12 BUN 13 Creatinine 0.82 Estimated GFR 67 L Random Glucose 101 Calcium 7.9 L Prot Corrected Calcium Total Bilirubin 1.0 AST 31 ALT 31 Alkaline Phosphatase 213 H Total Creatine Kinase 46 Troponin I Less than 0.02 L B-Natriuretic Peptide Total Protein 7.5 Albumin 2.3 L Lipase 98 Serum Alcohol Less than 3 10/23/17 10/23/17 10/24/17 14:10 14:10 05:47 WBC 13.5 H RBC 4.62 Hgb 13.8 Hct 41.2 MCV 89.1 MCH 29.8 MCHC 33.4 RDW 13.4 Plt Count 358 MPV 7.4 Neut % (Auto) 81.7 H Lymph % (Auto) 9.3 [place] % (Auto) 8.5 H Eos % (Auto) 0.4 Baso % (Auto) 0.1 Neut # (Auto) 11.0 H Lymph # (Auto) 1.2 [place] # (Auto) 1.1 H Eos # (Auto) 0.1 Baso # (Auto) 0.0 WBC Differential . Differential Comment Auto diff final PT INR APTT Sodium Cancelled Potassium Cancelled Chloride Cancelled Carbon Dioxide Cancelled Anion Gap Cancelled BUN Cancelled Creatinine Cancelled Estimated GFR Cancelled Random Glucose Cancelled Calcium Cancelled Prot Corrected Calcium Cancelled Total Bilirubin Cancelled AST Cancelled ALT Cancelled Alkaline Phosphatase Cancelled Total Creatine Kinase Cancelled Troponin I B-Natriuretic Peptide 214 H Total Protein Cancelled Albumin Cancelled Lipase Serum Alcohol - Imaging Impressions Chest X-Ray 10/23/17 13:57 CONCLUSION: New diffuse patchy infiltrate in the left lower lung with a small effusion suggestive of pneumonia. Assessment and Plan - Plan A/P - A-fib with RVR started on Amiodarone drip by ER- continue VICTORINO Nikkym-possibly not a good candidate for anticoagulation. cardiology consult appreciated- echo pending. -sepsis due to pneumonia with history of COPD- clinically better today. continue IV Levaquin- on neb treatment- keep on oxygen to keep O2 sat >90%- follow the cultures. -DVT prophylaxis; subq Lovenox -DNR status. Discharge Planning: within the next 24-48 hrs if continues to improve- pending echo and cultures.
--- NOTE | 2017-10-24 13:18 | P.PNCA ---
Subjective Interval history: No events over night Heart rate controlled No complaints Physical Exam Vital signs: Vital Signs 10/23/17 13:56 10/23/17 13:57 10/23/17 14:25 Temperature 98.0 F 97.9 F Pulse Rate 188 H 188 H 96 H Respiratory Rate 28 H 32 H Blood Pressure 88/63 L 125/59 L Pulse Oximetry 92 L 96 94 L 10/23/17 15:10 10/23/17 16:12 10/23/17 16:19 Temperature 97.8 F 98.0 F Pulse Rate 89 83 Respiratory Rate 22 24 Blood Pressure 117/77 120/61 Pulse Oximetry 99 98 99 10/23/17 16:20 10/23/17 16:43 10/23/17 17:20 Temperature 97.8 F 97.8 F Pulse Rate 89 92 H Respiratory Rate 20 22 28 H Blood Pressure 108/65 105/67 Pulse Oximetry 98 10/23/17 18:20 10/23/17 20:00 10/23/17 21:35 Temperature 97.9 F 97.7 F Pulse Rate 86 78 Respiratory Rate 26 H 22 Blood Pressure 110/68 102/53 L Pulse Oximetry 99 94 L 96 10/24/17 00:00 10/24/17 04:00 10/24/17 07:54 Temperature 98.1 F 98.4 F 97.7 F Pulse Rate 78 76 70 Respiratory Rate 20 20 18 Blood Pressure 123/50 L 111/49 L 117/51 L Pulse Oximetry 93 L 93 L 96 10/24/17 08:00 Temperature Pulse Rate Respiratory Rate Blood Pressure Pulse Oximetry 96 Intake & Output 10/23/17 10/24/17 10/24/17 18:59 06:59 18:59 Intake Total 100 / 100 510 / 510 Balance 100 / 100 510 / 510 Weight 58.967 kg 62 kg Intake: IV 100 / 100 270 / 270 Cordarone Inj 450 MG In D5W Inj 250 / 250 241 ML @ 1 MG/MIN 33.33 mls/hr IV.CONT TITRATE PRN Rx#: [id number] Cordarone Inj 450 MG In NS Inj 20 / 20 241 ML @ 1 MG/MIN 33.33 mls/hr IV.CONT TITRATE PRN Rx#: [id number] Cordarone Inj 150 MG In D5W Inj 100 / 100 97 ML @ 600 mls/hr IV.SIG ONCE ONE Rx#:[id number] Oral 240 / 240 Other: # Urine Diapers 2 Date of Last Bowel Movement 10/24/17 # Incontinent Bowel Movements 2 Narrative: GENERAL: NAD, alert and awake SKIN: Warm and dry. HEAD: Atraumatic. Normocephalic. EYES: Pupils equal and round. No scleral icterus. No injection or drainage. ENT: No nasal bleeding or discharge. Mucous membranes pink and moist. NECK: Trachea midline. No JVD. CARDIOVASCULAR: Regular rate and rhythm. RESPIRATORY: No accessory muscle use. Clear to auscultation. Breath sounds equal bilaterally. GASTROINTESTINAL: Abdomen soft, non-tender, nondistended. Hepatic and splenic margins not palpable. MUSCULOSKELETAL: Extremities without clubbing, cyanosis, or edema. No obvious deformities. NEUROLOGICAL: Awake and alert. No obvious cranial nerve deficits. Assessment and Plan - Assessment (1) Pneumonia Code(s): J18.9 - Pneumonia, unspecified organism Status: Acute (2) Atrial fibrillation with rapid ventricular response Code(s): I48.91 - Unspecified atrial fibrillation Status: Acute (3) HTN (hypertension) Code(s): I10 - Essential (primary) hypertension Status: Acute - Plan 1) PNA Per primary team 2) Afib with RVR Most like secondary to increase sympathetics with PNA Amiodarone drip stopped, placed on Cardizem PO 3) 2D echo showing 65-70% EF 4) CHADS-VASc = 3 Discussed with caregiver, does not have any falls Will plan on Eliquis 5) Tobacco cessation (1) Pneumonia Qualifiers: Pneumonia type: due to unspecified organism Laterality: left Lung location: lower lobe of lung Qualified Code(s): J18.1 - Lobar pneumonia, unspecified organism
--- NOTE | 2017-10-24 15:01 | ECHRPT ---
Indication: A FIB FLUTTER CONCLUSIONS Normal left ventricular size. Mild concentric left ventricular hypertrophy. The left ventricular systolic function is hyperdynamic with an estimated ejection fraction in the ra nge of 65- 70%. 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 Mitral annular calcification is present. [id number] mitral valve regurgitation. Aortic valve sclerosis is present. BP: / HR: Rhythm: MEASUREMENTS (Male / Female) Normal Values Technical Quality: 2D ECHO LV Diastolic Diameter PLAX 4.2 cm 4.2 - 5.9 / 3.9 - 5.3 cm LV Systolic Diameter PLAX 2.9 cm IVS Diastolic Thickness 1.0 cm 0.6 - 1.0 / 0.6 - 0.9 cm LVPW Diastolic Thickness 0.5 cm 0.6 - 1.0 / 0.6 - 0.9 cm LV Relative Wall Thickness 0.4 RV Internal Dim ED PLAX 2.1 cm DOPPLER Mitral E Point Velocity 81.4 cm/s Mitral A Point Velocity 98.7 cm/s Mitral E to A Ratio 0.8 FINDINGS LEFT VENTRICLE Normal left ventricular size. Mild concentric left ventricular hypertrophy. The left ventricular systolic function is hyperdynamic with an estimated ejection fraction in the ra nge of 65- 70%. RIGHT VENTRICLE Normal right ventricular size and systolic function. LEFT ATRIUM The left atrial size is normal. RIGHT ATRIUM The right atrial size is normal. ATRIAL SEPTUM Thickened atrial septum is noted with morphological features most consistent with a lipomatous atria l septum. AORTA The aortic root and proximal ascending aorta are normal in size on limited imaging. MITRAL VALVE Mitral annular calcification is present. [id number] mitral valve regurgitation. AORTIC VALVE Aortic valve sclerosis is present. TRICUSPID VALVE Structurally normal tricuspid valve. No tricuspid valve stenosis or regurgitation. PULMONARY VALVE The pulmonary valve is not well visualized. VESSELS The inferior vena cava is normal in size. PERICARDIUM No pericardial effusion. Dwaine Fernandes MD, FACC, FSCAI (Electronically Signed) Final Date:24 October 2017 15:00
[2017-10-24 16:13] LABS: Bacteria,Urine Many /hpf; Bilirubin,Urine Negative (Negative); Clarity,Urine Cloudy (Clear); Color,Urine Amber (Yellw/Straw); Glucose,Urine (UA) Negative (Negative); Hyaline Casts,Urine 12 /lpf (0-3); Leukocyte Esterase,Urine Moderate (Negative); Mucus,Urine Few /lpf (Occasional); Nitrite,Urine Negative (Negative); Specific Gravity,Urine 1.019 (1.002-1.035); Squamous Epithelial Cell,Urine 2 /hpf (0-5); Transitional Epi Cells,Urine 1 /hpf; Urobilinogen,Urine 4 or Greater mg/dL (Less than 2)
[2017-10-24 16:15] LABS: Amphetamine Screen,Urine Neg (Neg); Barbiturate Screen,Urine Neg (Neg); Cannabinoid Screen,Urine Neg (Neg)
[2017-10-24 16:16] LABS: Cocaine Screen,Urine Neg (Neg)
[2017-10-24 16:28] LABS: Opiate Screen,Urine Neg (Neg)
[2017-10-24] MEDS: Levofloxacin 500 mg Premix Inj 500 MG/100 ML PIGGYBACK IV.SIG SCH (16:49)
--- NOTE | 2017-10-24 19:44 | ECG ---
Date Performed: 10/23/2017 Time Performed: 14:02:51 PTAGE: 81 years EKG: ATRIAL FIBRILLATION WITH RAPID VENTRICULAR RESPONSE NONSPECIFIC ST & T-WAVE ABNORMALITY ABN ORMAL RHYTHM ECG PREVIOUS TRACING L: 08/27/2016 @13.05 Atrial Fibrillation is new compared to the prior EKG DOCTOR: Jayson Nunez Interpretating Date/Time 10/24/2017 19:43:03
[2017-10-25 07:55] LABS: Baso % (Auto) 0.2 % (0.0-2.0); Eos # (Auto) 0.1 th/mm3 (0.0-0.4); Eos % (Auto) 0.8 % (0.0-4.0); Hematocrit 39.9 % (35.0-46.0); Hemoglobin 13.1 gm/dL (11.6-15.3); Lymph % (Auto) 7.5 % (9.0-44.0); Mean Corpuscular HGB Conc 32.7 % (32.0-36.0); Mean Corpuscular Hemoglobin 28.9 pg (27.0-34.0); Mean Corpuscular Volume 88.3 fL (80.0-100.0); Mean Platelet Volume 7.3 fL (7.0-11.0); Mono % (Auto) 7.5 % (0.0-8.0); Neut # (Auto) 10.7 th/mm3 (1.8-7.7); Platelet Count 362 th/mm3 (150-450); Red Blood Count 4.52 mil/mm3 (4.00-5.30); Red Cell Distribution Width 13.3 % (11.6-17.2); White Blood Count 12.8 th/mm3 (4.0-11.0)
[2017-10-25] MEDS: predniSONE 5 MG Tablet PO SCH (09:25)
[2017-10-25] MEDS: dilTIAZem 30 MG Tablet PO SCH ×4 (09:25→21:25)
[2017-10-25] MEDS: Tiotropium Bromide 18 MCG/ACT Inhaler INH SCH (09:25)
--- NOTE | 2017-10-25 09:58 | P.DS ---
Date of admission: 10/23/17 16:01 Primary care physician: UNKNOWN Brief History from admission: patient is a 81 y/o female with history of dementia, COPD , [facility] resident, who was brought to ER today with worsening sob. her care-cold patcher at the bedside says that her sob started two days ago and gradually got worse. she says that she's had dry cough with no reported fever, chills, night sweats. she says that she had some pain to the left chest wall. on arrival to ER she was found to have a- fib with RVR for which she was placed on Amiodarone drip. there's no history of sick- contacts recently. DS: Medications - Discharge Medications Prescriptions: apixaban [Eliquis] 5 mg PO BID #90 tab cefuroxime axetil 250 mg PO Q12H #14 tab diltiazem HCl 30 mg PO QID #120 tab Lactobacillus acidoph-L.bulgar [Lactinex] 1 tab PO BID #60 tab DS: Summary Hospital Course: Physical exam GENERAL: Very pleasant elderly female appears in not acute distress. CARDIOVASCULAR: Regular rate and rhythm without murmurs, gallops, or rubs. RESPIRATORY: Breath sounds equal bilaterally. No accessory muscle use. GASTROINTESTINAL: Abdomen soft, non-tender, nondistended. MUSCULOSKELETAL: No cyanosis, or edema. BACK: Nontender without obvious deformity. No CVA tenderness. Assessment and Plan A-fib with RVR started on Amiodarone drip by ER- continue PO Cardizem. High risk of falls. Started on Eliquis for anticoagulation discussed with Dr. Mcduffie cardiology cardiology consult appreciated- echo reviewed with ejection fraction of 65-70% , atrial lipoma Sepsis due to pneumonia with history of COPD- clinically better today. Sepsis resolved continue IV Levaquin- on neb treatment- keep on oxygen to keep O2 sat >90%- follow the cultures Blood culture so far negative to date -DVT prophylaxis; subq Lovenox -DNR status. Discharge Planning: Improving possible discharge later today when arrangements are done. Patient needs home health and oxygen at discharge. Case management is following. Order oxygen walking test, patient failed. PT also to come and evaluate the patient recommends PT Patient comes from [address], [place] to [facility] with home health Failed oxygen walking test, she needs oxygen at the [facility]. Case management is following for discharge plan - Time Spent with Patient Total time spent providing and/or coordinating discharge services: Greater than 30 minutes - Quality: VTE Deep Vein Thrombosis/Pulmonary Embolism Present on Admission: No Exam Vital signs: Vital Signs 10/24/17 10:00 10/24/17 11:00 10/24/17 12:00 Temperature 98.2 F Pulse Rate 70 74 72 Respiratory Rate 18 Blood Pressure 107/57 L Pulse Oximetry 91 L 10/24/17 13:00 10/24/17 14:00 10/24/17 15:00 Temperature Pulse Rate 74 84 73 Respiratory Rate Blood Pressure Pulse Oximetry 10/24/17 16:00 10/24/17 17:00 10/24/17 19:00 Temperature 97.9 F Pulse Rate 73 82 76 Respiratory Rate 18 Blood Pressure 133/62 Pulse Oximetry 92 L 10/24/17 20:00 10/24/17 21:00 10/24/17 22:00 Temperature 98 F Pulse Rate 70 72 76 Respiratory Rate 18 Blood Pressure 123/57 L Pulse Oximetry 94 L 10/24/17 23:00 10/25/17 00:00 10/25/17 01:00 Temperature 97.5 F L Pulse Rate 67 65 74 Respiratory Rate 18 Blood Pressure 117/43 L Pulse Oximetry 95 10/25/17 02:00 10/25/17 03:00 10/25/17 04:00 Temperature 97.9 F Pulse Rate 80 76 73 Respiratory Rate 20 Blood Pressure 135/60 Pulse Oximetry 94 L 10/25/17 05:00 10/25/17 06:00 Temperature Pulse Rate 70 76 Respiratory Rate Blood Pressure Pulse Oximetry Intake & Output 10/24/17 10/25/17 10/25/17 18:59 06:59 18:59 Intake Total 1000 / 1000 820 / 820 480 / 480 Output Total 460 / 460 700 / 700 Balance 540 / 540 120 / 120 480 / 480 Weight 63 kg Intake: IV 100 / 100 480 / 480 Cordarone Inj 450 MG In NS Inj 230 / 230 241 ML @ 1 MG/MIN 33.33 mls/hr IV.CONT TITRATE PRN Rx#: [id number] Levaquin 500 mg Premix Inj 500 100 / 100 100 / 100 mg In 100 ml @ 100 mls/hr IV. SIG Q24H MAXWELL Rx#:[id number] Oral 1000 / 1000 720 / 720 Output: Urine 460 / 460 700 / 700 Other: # Voids 1 Date of Last Bowel Movement 10/24/17 10/24/17 # Bowel Movements 2 # Incontinent Bowel Movements 3 Results Procedures completed during hospitalization: No procedures Labs on day of discharge: Labs from last 24 hours 10/25/17 10/24/17 10/24/17 07:17 14:23 14:23 WBC 12.8 H RBC 4.52 Hgb 13.1 Hct 39.9 MCV 88.3 MCH 28.9 MCHC 32.7 RDW 13.3 Plt Count 362 MPV 7.3 Neut % (Auto) 84.0 H Lymph % (Auto) 7.5 L [place] % (Auto) 7.5 Eos % (Auto) 0.8 Baso % (Auto) 0.2 Neut # (Auto) 10.7 H Lymph # (Auto) 1.0 [place] # (Auto) 1.0 H Eos # (Auto) 0.1 Baso # (Auto) 0.0 WBC Differential . Differential Comment Auto diff final Urine Color Una Urine Clarity Cloudy H Urine pH 5.0 Ur Specific [place] 1.019 Urine Protein 30 H Urine Glucose (UA) Negative Urine Ketones Negative Urine Occult Blood Large H Urine Nitrate Negative Urine Bilirubin Negative Urine Urobilinogen 4 or greater Ur Leukocyte Esterase Moderate H Urine RBC 8 H Urine WBC 70 H Ur Squamous Epith Cells 2 Ur Transition Epith Cell 1 Urine Bacteria Many H Hyaline Casts 12 Urine Mucus Few H Micro UA Comment Culture indicated Urine Culture Comments Culture indicated Urine Opiates Screen Neg Ur Barbiturates Screen Neg Ur Amphetamines Screen Neg U Benzodiazepines Scrn Neg Urine Cocaine Screen Neg U Cannabinoids Screen Neg Preliminary micro results at discharge 10/23/17 16:40 Aerobic Blood Culture - Preliminary Blood - Peripheral No growth in 1 day Anaerobic Blood Culture - Preliminary No growth in 1 day 10/23/17 16:30 Aerobic Blood Culture - Preliminary Blood - Peripheral No growth in 1 day Anaerobic Blood Culture - Preliminary No growth in 1 day - Impressions ITS Impressions Chest X-Ray 10/23/17 13:57 CONCLUSION: New diffuse patchy infiltrate in the left lower lung with a small effusion suggestive of pneumonia. Discharge Plan - Discharge Disposition Patient Disposition: /Home Health Service - Discharge Condition Condition: Stable - Discharge Order Discharge Orders: Discharge Order (Routine); Ordered 10/26/17 Ordered By: Rema Rodriguez - Discharge Details Anticipated Discharge Date: 10/25/17 - Physicians Team Primary Care Provider: UNKNOWN, Attending Provider: Rema Rodriguez Other Providers: Amilcar Mcduffie DO ; [employer] ; Dalyo Reese,Agency
--- NOTE | 2017-10-25 10:00 | P.PN ---
Physical Exam Vital signs: Vital Signs 10/24/17 11:00 10/24/17 12:00 10/24/17 13:00 Temperature 98.2 F Pulse Rate 74 72 74 Respiratory Rate 18 Blood Pressure 107/57 L Pulse Oximetry 91 L 10/24/17 14:00 10/24/17 15:00 10/24/17 16:00 Temperature 97.9 F Pulse Rate 84 73 73 Respiratory Rate 18 Blood Pressure 133/62 Pulse Oximetry 92 L 10/24/17 17:00 10/24/17 19:00 10/24/17 20:00 Temperature 98 F Pulse Rate 82 76 70 Respiratory Rate 18 Blood Pressure 123/57 L Pulse Oximetry 94 L 10/24/17 21:00 10/24/17 22:00 10/24/17 23:00 Temperature Pulse Rate 72 76 67 Respiratory Rate Blood Pressure Pulse Oximetry 10/25/17 00:00 10/25/17 01:00 10/25/17 02:00 Temperature 97.5 F L Pulse Rate 65 74 80 Respiratory Rate 18 Blood Pressure 117/43 L Pulse Oximetry 95 10/25/17 03:00 10/25/17 04:00 10/25/17 05:00 Temperature 97.9 F Pulse Rate 76 73 70 Respiratory Rate 20 Blood Pressure 135/60 Pulse Oximetry 94 L 10/25/17 06:00 Temperature Pulse Rate 76 Respiratory Rate Blood Pressure Pulse Oximetry Intake & Output 10/24/17 10/25/17 10/25/17 18:59 06:59 18:59 Intake Total 1000 / 1000 820 / 820 480 / 480 Output Total 460 / 460 700 / 700 Balance 540 / 540 120 / 120 480 / 480 Weight 63 kg Intake: IV 100 / 100 480 / 480 Cordarone Inj 450 MG In NS Inj 230 / 230 241 ML @ 1 MG/MIN 33.33 mls/hr IV.CONT TITRATE PRN Rx#: [id number] Levaquin 500 mg Premix Inj 500 100 / 100 100 / 100 mg In 100 ml @ 100 mls/hr IV. SIG Q24H MAXWELL Rx#:[id number] Oral 1000 / 1000 720 / 720 Output: Urine 460 / 460 700 / 700 Other: # Voids 1 Date of Last Bowel Movement 10/24/17 10/24/17 # Bowel Movements 2 # Incontinent Bowel Movements 3 Narrative: Subjective: The patient is in bed she appears to not acute distress. She is breathing fairly well. No cough no fever or chills. Denies having any chest pain at this time. No nausea vomiting. She however feels cold and asked for extra blanket and management of temperature in the room. GENERAL: Very pleasant elderly female appears in not acute distress. CARDIOVASCULAR: Regular rate and rhythm without murmurs, gallops, or rubs. RESPIRATORY: Breath sounds equal bilaterally. No accessory muscle use. GASTROINTESTINAL: Abdomen soft, non-tender, nondistended. MUSCULOSKELETAL: No cyanosis, or edema. BACK: Nontender without obvious deformity. No CVA tenderness. Assessment and Plan A-fib with RVR started on Amiodarone drip by ER- continue VICTORINO Cardizem-possibly not a good candidate for anticoagulation. cardiology consult appreciated- echo pending. Sepsis due to pneumonia with history of COPD- clinically better today. continue IV Levaquin- on neb treatment- keep on oxygen to keep O2 sat >90%- follow the cultures. Blood culture so far negative to date -DVT prophylaxis; subq Lovenox -DNR status. Discharge Planning: Possible discharge tomorrow if continues to improve- pending echo and cultures. We will order oxygen walking test PT also to come and evaluate the patient Patient comes from [facility] possible discharge back to left Results - Labs CBC & Chem 7: 10/25/17 07:17 10/23/17 14:10 Laboratory Results - last 24 hr 10/24/17 10/24/17 10/25/17 14:23 14:23 07:17 WBC 12.8 H RBC 4.52 Hgb 13.1 Hct 39.9 MCV 88.3 MCH 28.9 MCHC 32.7 RDW 13.3 Plt Count 362 MPV 7.3 Neut % (Auto) 84.0 H Lymph % (Auto) 7.5 L [place] % (Auto) 7.5 Eos % (Auto) 0.8 Baso % (Auto) 0.2 Neut # (Auto) 10.7 H Lymph # (Auto) 1.0 [place] # (Auto) 1.0 H Eos # (Auto) 0.1 Baso # (Auto) 0.0 WBC Differential . Differential Comment Auto diff final Urine Color Una Urine Clarity Cloudy H Urine pH 5.0 Ur Specific [place] 1.019 Urine Protein 30 H Urine Glucose (UA) Negative Urine Ketones Negative Urine Occult Blood Large H Urine Nitrate Negative Urine Bilirubin Negative Urine Urobilinogen 4 or greater Ur Leukocyte Esterase Moderate H Urine RBC 8 H Urine WBC 70 H Ur Squamous Epith Cells 2 Ur Transition Epith Cell 1 Urine Bacteria Many H Hyaline Casts 12 Urine Mucus Few H Micro UA Comment Culture indicated Urine Culture Comments Culture indicated Urine Opiates Screen Neg Ur Barbiturates Screen Neg Ur Amphetamines Screen Neg U Benzodiazepines Scrn Neg Urine Cocaine Screen Neg U Cannabinoids Screen Neg Microbiology 10/23/17 16:40 Blood - Peripheral Aerobic Blood Culture - Preliminary No growth in 1 day 10/23/17 16:40 Blood - Peripheral Anaerobic Blood Culture - Preliminary No growth in 1 day 10/23/17 16:30 Blood - Peripheral Aerobic Blood Culture - Preliminary No growth in 1 day 10/23/17 16:30 Blood - Peripheral Anaerobic Blood Culture - Preliminary No growth in 1 day
[2017-10-25] MEDS: Levofloxacin 500 mg Premix Inj 500 MG/100 ML PIGGYBACK IV.SIG SCH (16:37)
--- NOTE | 2017-10-25 19:16 | P.PNCA ---
Subjective Interval history: No events overnight Overall doing well, no complaints Physical Exam Vital signs: Vital Signs 10/24/17 20:00 10/24/17 21:00 10/24/17 22:00 Temperature 98 F Pulse Rate 70 72 76 Respiratory Rate 18 Blood Pressure 123/57 L Pulse Oximetry 94 L 10/24/17 23:00 10/25/17 00:00 10/25/17 01:00 Temperature 97.5 F L Pulse Rate 67 65 74 Respiratory Rate 18 Blood Pressure 117/43 L Pulse Oximetry 95 10/25/17 02:00 10/25/17 03:00 10/25/17 04:00 Temperature 97.9 F Pulse Rate 80 76 73 Respiratory Rate 20 Blood Pressure 135/60 Pulse Oximetry 94 L 10/25/17 05:00 10/25/17 06:00 10/25/17 07:00 Temperature Pulse Rate 70 76 62 Respiratory Rate Blood Pressure Pulse Oximetry 10/25/17 08:00 10/25/17 09:00 10/25/17 10:00 Temperature 98.6 F Pulse Rate 84 68 62 Respiratory Rate 22 Blood Pressure 120/47 L Pulse Oximetry 92 L 10/25/17 11:00 10/25/17 12:00 10/25/17 13:00 Temperature 98.4 F Pulse Rate 72 69 70 Respiratory Rate 20 Blood Pressure 125/53 L Pulse Oximetry 93 L 10/25/17 14:00 10/25/17 15:00 10/25/17 16:00 Temperature 98.4 F Pulse Rate 72 68 70 Respiratory Rate 18 Blood Pressure 127/60 Pulse Oximetry 94 L 10/25/17 17:00 10/25/17 17:59 Temperature Pulse Rate 70 82 Respiratory Rate Blood Pressure Pulse Oximetry Intake & Output 10/25/17 10/25/17 10/26/17 06:59 18:59 06:59 Intake Total 820 / 820 1500 / 1500 Output Total 700 / 700 1200 / 1200 Balance 120 / 120 300 / 300 Weight 63 kg Intake: IV 100 / 100 580 / 580 Cordarone Inj 450 MG In NS Inj 230 / 230 241 ML @ 1 MG/MIN 33.33 mls/hr IV.CONT TITRATE PRN Rx#: [id number] Levaquin 500 mg Premix Inj 500 100 / 100 200 / 200 mg In 100 ml @ 100 mls/hr IV. SIG Q24H MAXWELL Rx#:[id number] Oral 720 / 720 920 / 920 Output: Urine 700 / 700 1200 / 1200 Other: # Voids 1 Date of Last Bowel Movement 10/24/17 10/25/17 # Bowel Movements 2 Narrative: GENERAL: NAD, alert/awake SKIN: Warm and dry. HEAD: Atraumatic. Normocephalic. EYES: Pupils equal and round. No scleral icterus. No injection or drainage. ENT: No nasal bleeding or discharge. Mucous membranes pink and moist. NECK: Trachea midline. No JVD. CARDIOVASCULAR: Regular rate and rhythm. RESPIRATORY: No accessory muscle use. Clear to auscultation. Breath sounds equal bilaterally. GASTROINTESTINAL: Abdomen soft, non-tender, nondistended. Hepatic and splenic margins not palpable. MUSCULOSKELETAL: Extremities without clubbing, cyanosis, or edema. No obvious deformities. NEUROLOGICAL: Awake and alert. No obvious cranial nerve deficits. Motor grossly within normal limits. Five out of 5 muscle strength in the arms and legs. Normal speech. PSYCHIATRIC: Appropriate mood and affect; insight and judgment normal. Assessment and Plan - Assessment (1) Pneumonia Code(s): J18.9 - Pneumonia, unspecified organism Status: Acute (2) Atrial fibrillation with rapid ventricular response Code(s): I48.91 - Unspecified atrial fibrillation Status: Acute (3) HTN (hypertension) Code(s): I10 - Essential (primary) hypertension Status: Acute - Plan 1) PNA Per primary team 2) Afib with RVR Most like secondary to increase sympathetics with PNA Amiodarone drip stopped, placed on Cardizem PO Heart rates controlled 3) 2D echo showing 65-70% EF 4) CHADS-VASc = 3 Discussed with caregiver, does not have any falls Eliquis started 5) Tobacco cessation 6) Cardiovascularly stable for discharge (1) Pneumonia Qualifiers: Pneumonia type: due to unspecified organism Laterality: left Lung location: lower lobe of lung Qualified Code(s): J18.1 - Lobar pneumonia, unspecified organism
[2017-10-26] MEDS: dilTIAZem 30 MG Tablet PO SCH ×2 (09:33→14:27)
[2017-10-26] MEDS: predniSONE 5 MG Tablet PO SCH (09:33)
[2017-10-26] MEDS: Tiotropium Bromide 18 MCG/ACT Inhaler INH SCH (09:33)
--- NOTE | 2017-10-26 11:50 | P.PNCA ---
Subjective Interval history: No events overnight Patient relaxing comfortably, no complaints Physical Exam Vital signs: Vital Signs 10/25/17 12:00 10/25/17 13:00 10/25/17 14:00 Temperature 98.4 F Pulse Rate 69 70 72 Respiratory Rate 20 Blood Pressure 125/53 L Pulse Oximetry 93 L Pulse Oximetry [Resting on Room Air] Pulse Oximetry [Resting with Oxygen] 10/25/17 15:00 10/25/17 16:00 10/25/17 17:00 Temperature 98.4 F Pulse Rate 68 70 70 Respiratory Rate 18 Blood Pressure 127/60 Pulse Oximetry 94 L Pulse Oximetry [Resting on Room Air] Pulse Oximetry [Resting with Oxygen] 10/25/17 17:59 10/25/17 19:00 10/25/17 20:00 Temperature 97.6 F Pulse Rate 82 76 76 Respiratory Rate 20 Blood Pressure 117/49 L Pulse Oximetry 94 L Pulse Oximetry [Resting on Room Air] Pulse Oximetry [Resting with Oxygen] 10/25/17 21:00 10/25/17 21:09 10/25/17 22:00 Temperature Pulse Rate 72 70 Respiratory Rate Blood Pressure Pulse Oximetry 95 Pulse Oximetry [Resting on Room Air] Pulse Oximetry [Resting with Oxygen] 10/25/17 23:00 10/26/17 00:00 10/26/17 01:00 Temperature 97.8 F Pulse Rate 76 74 70 Respiratory Rate 18 Blood Pressure 122/50 L Pulse Oximetry 91 L Pulse Oximetry [Resting on Room Air] Pulse Oximetry [Resting with Oxygen] 10/26/17 02:00 10/26/17 03:00 10/26/17 04:00 Temperature 98.1 F Pulse Rate 70 84 78 Respiratory Rate 20 Blood Pressure 119/65 Pulse Oximetry 91 L Pulse Oximetry [Resting on Room Air] Pulse Oximetry [Resting with Oxygen] 10/26/17 05:00 10/26/17 05:59 10/26/17 07:00 Temperature Pulse Rate 78 64 86 Respiratory Rate Blood Pressure Pulse Oximetry Pulse Oximetry [Resting on Room Air] Pulse Oximetry [Resting with Oxygen] 10/26/17 08:00 10/26/17 09:00 10/26/17 10:00 Temperature 98 F Pulse Rate 64 74 71 Respiratory Rate 18 Blood Pressure 122/51 L Pulse Oximetry 95 Pulse Oximetry [Resting on Room Air] Pulse Oximetry [Resting with Oxygen] 10/26/17 10:09 10/26/17 11:40 Temperature Pulse Rate 71 Respiratory Rate 16 Blood Pressure Pulse Oximetry 96 Pulse Oximetry [Resting on Room Air] 86 L Pulse Oximetry [Resting with Oxygen] 95 Intake & Output 10/25/17 10/26/17 10/26/17 18:59 06:59 18:59 Intake Total 1500 / 1500 720 / 720 Output Total 1200 / 1200 800 / 800 Balance 300 / 300 -80 / -80 Weight 62.8 kg Intake: IV 580 / 580 Cordarone Inj 450 MG In NS Inj 230 / 230 241 ML @ 1 MG/MIN 33.33 mls/hr IV.CONT TITRATE PRN Rx#: [id number] Levaquin 500 mg Premix Inj 500 200 / 200 mg In 100 ml @ 100 mls/hr IV. SIG Q24H MAXWELL Rx#:[id number] Oral 920 / 920 720 / 720 Output: Urine 1200 / 1200 800 / 800 Other: # Voids 1 Date of Last Bowel Movement 10/25/17 10/26/17 10/26/17 # Bowel Movements 2 Narrative: GENERAL: NAD, alert/awake SKIN: Warm and dry. HEAD: Atraumatic. Normocephalic. EYES: Pupils equal and round. No scleral icterus. No injection or drainage. ENT: No nasal bleeding or discharge. Mucous membranes pink and moist. NECK: Trachea midline. No JVD. CARDIOVASCULAR: Regular rate and rhythm. RESPIRATORY: No accessory muscle use. Clear to auscultation. Breath sounds equal bilaterally. GASTROINTESTINAL: Abdomen soft, non-tender, nondistended. Hepatic and splenic margins not palpable. MUSCULOSKELETAL: Extremities without clubbing, cyanosis, or edema. No obvious deformities. NEUROLOGICAL: Awake and alert. No obvious cranial nerve deficits. Motor grossly within normal limits. Five out of 5 muscle strength in the arms and legs. Normal speech. PSYCHIATRIC: Appropriate mood and affect; insight and judgment normal. Assessment and Plan - Assessment (1) Pneumonia Code(s): J18.9 - Pneumonia, unspecified organism Status: Acute (2) Atrial fibrillation with rapid ventricular response Code(s): I48.91 - Unspecified atrial fibrillation Status: Acute (3) HTN (hypertension) Code(s): I10 - Essential (primary) hypertension Status: Acute - Plan 1) PNA Per primary team 2) Afib with RVR Most like secondary to increase sympathetics with PNA Amiodarone drip stopped, placed on Cardizem PO Heart rates controlled on Cardizem 3) 2D echo showing 65-70% EF 4) CHADS-VASc = 3 Discussed with caregiver, does not have any falls Eliquis started 5) Tobacco cessation 6) Cardiovascularly stable for discharge (1) Pneumonia Qualifiers: Pneumonia type: due to unspecified organism Laterality: left Lung location: lower lobe of lung Qualified Code(s): J18.1 - Lobar pneumonia, unspecified organism
[2017-10-26 14:12] VITALS: PULSE 74
[2017-10-26 14:14] VITALS: BP 118/40; RESP 18; TEMP 98.1; O2SAT 94
--- NOTE | 2017-10-26 17:46 | P.PN ---
Physical Exam Vital signs: Vital Signs 10/25/17 17:59 10/25/17 19:00 10/25/17 20:00 Temperature 97.6 F Pulse Rate 82 76 76 Respiratory Rate 20 Blood Pressure 117/49 L Pulse Oximetry 94 L Pulse Oximetry [Resting on Room Air] Pulse Oximetry [Resting with Oxygen] 10/25/17 21:00 10/25/17 21:09 10/25/17 22:00 Temperature Pulse Rate 72 70 Respiratory Rate Blood Pressure Pulse Oximetry 95 Pulse Oximetry [Resting on Room Air] Pulse Oximetry [Resting with Oxygen] 10/25/17 23:00 10/26/17 00:00 10/26/17 01:00 Temperature 97.8 F Pulse Rate 76 74 70 Respiratory Rate 18 Blood Pressure 122/50 L Pulse Oximetry 91 L Pulse Oximetry [Resting on Room Air] Pulse Oximetry [Resting with Oxygen] 10/26/17 02:00 10/26/17 03:00 10/26/17 04:00 Temperature 98.1 F Pulse Rate 70 84 78 Respiratory Rate 20 Blood Pressure 119/65 Pulse Oximetry 91 L Pulse Oximetry [Resting on Room Air] Pulse Oximetry [Resting with Oxygen] 10/26/17 05:00 10/26/17 05:59 10/26/17 07:00 Temperature Pulse Rate 78 64 86 Respiratory Rate Blood Pressure Pulse Oximetry Pulse Oximetry [Resting on Room Air] Pulse Oximetry [Resting with Oxygen] 10/26/17 08:00 10/26/17 09:00 10/26/17 10:00 Temperature 98 F Pulse Rate 64 74 71 Respiratory Rate 18 Blood Pressure 122/51 L Pulse Oximetry 95 Pulse Oximetry [Resting on Room Air] Pulse Oximetry [Resting with Oxygen] 10/26/17 10:09 10/26/17 11:00 10/26/17 11:40 Temperature Pulse Rate 71 77 Respiratory Rate 16 Blood Pressure Pulse Oximetry 96 Pulse Oximetry [Resting on Room Air] 86 L Pulse Oximetry [Resting with Oxygen] 95 10/26/17 12:00 10/26/17 13:00 10/26/17 14:00 Temperature 98.1 F Pulse Rate 78 76 74 Respiratory Rate 18 Blood Pressure 118/40 L Pulse Oximetry 94 L Pulse Oximetry [Resting on Room Air] Pulse Oximetry [Resting with Oxygen] Intake & Output 10/25/17 10/26/1710/26/18 18:59 06:59 18:59 Intake Total 1500 / 1500 720 / 720 480 / 480 Output Total 1200 / 1200 800 / 800 400 / 400 Balance 300 / 300 -80 / -80 80 / 80 Weight 62.8 kg Intake: IV 580 / 580 Cordarone Inj 450 MG In NS Inj 230 / 230 241 ML @ 1 MG/MIN 33.33 mls/hr IV.CONT TITRATE PRN Rx#: [id number] Levaquin 500 mg Premix Inj 500 200 / 200 mg In 100 ml @ 100 mls/hr IV. SIG Q24H MAXWELL Rx#:[id number] Oral 920 / 920 720 / 720 480 / 480 Output: Urine 1200 / 1200 800 / 800 400 / 400 Other: # Voids 1 Date of Last Bowel Movement 10/25/17 10/26/17 10/26/17 # Bowel Movements 2 Narrative: Subjective: The patient is in bed she appears to not acute distress feels a little bit sleepy. She is saturating well on 3 L by nasal cannula. She failed oxygen walking test and needs 3 L of oxygen at discharge. Case management is following for arrangements at discharge. Patient denies any chest pain or lightheadedness. No fever or chills. Less cough. Physical exam GENERAL: Very pleasant elderly female appears in not acute distress. CARDIOVASCULAR: Regular rate and rhythm without murmurs, gallops, or rubs. RESPIRATORY: Breath sounds equal bilaterally. No accessory muscle use. GASTROINTESTINAL: Abdomen soft, non-tender, nondistended. MUSCULOSKELETAL: No cyanosis, or edema. BACK: Nontender without obvious deformity. No CVA tenderness. Assessment and Plan A-fib with RVR started on Amiodarone drip by ER- continue PO Cardizem. High risk of falls. Started on Eliquis for anticoagulation discussed with Dr. Mcduffie cardiology cardiology consult appreciated- echo reviewed with ejection fraction of 65-70% , atrial lipoma Sepsis due to pneumonia with history of COPD- clinically better today. Sepsis resolved continue IV Levaquin- on neb treatment- keep on oxygen to keep O2 sat >90%- follow the cultures Blood culture so far negative to date -DVT prophylaxis; subq Lovenox -DNR status. Discharge Planning: Improving possible discharge later today when arrangements are done. Patient needs home health and oxygen at discharge. Case management is following. Order oxygen walking test, patient failed. PT also to come and evaluate the patient recommends PT Patient comes from [place], [place] to [facility] with home health Failed oxygen walking test, she needs oxygen at the [facility]. Case management is following for discharge plan Discussed with the patient, family at bedside, Dr. Mcduffie cardiology, nurse. Results - Labs CBC & Chem 7: 10/25/17 07:17 10/23/17 14:10 Microbiology 10/24/17 14:23 Clean Catch Urine Urine Culture - Final <10,000 cfu/mL yeast species - no further workup 10/23/17 16:40 Blood - Peripheral Aerobic Blood Culture - Preliminary No growth in 3 days 10/23/17 16:40 Blood - Peripheral Anaerobic Blood Culture - Preliminary No growth in 3 days 10/23/17 16:30 Blood - Peripheral Aerobic Blood Culture - Preliminary No growth in 3 days 10/23/17 16:30 Blood - Peripheral Anaerobic Blood Culture - Preliminary No growth in 3 days
== END 2017-10-26 14:49 | disposition home health service (06) ==
LOC: NEPE 13:40 → NEDA 16:01 → HCIS 19:28
PROVIDERS: ADMIT Hospitalist; ATTEND Hospitalist
DX: F03.90 Unspecified dementia, unspecified severity, without behavioral disturbance, psychotic disturbance, mood disturbance, and anxiety; F17.210 Nicotine dependence, cigarettes, uncomplicated; I48.91 Unspecified atrial fibrillation; A41.9 Sepsis, unspecified organism; I10 Essential (primary) hypertension; Z66 Do not resuscitate; J18.9 Pneumonia, unspecified organism; J44.0 Chronic obstructive pulmonary disease with (acute) lower respiratory infection